=== PATIENT | male | born 1960 | race Caucasian/White ===

== ENCOUNTER → 2023-06-11 | Outpatient (CLI) | payer BC | END | disposition home or self-care (01) | LOC: LABWHC1 10:38 | PROVIDERS: ATTEND Orthopaedic Surgery Orthopaedic Surgery of the Spine | DX: Z01.812 Encounter for preprocedural laboratory examination (principal) | CPT/HCPCS: 86850; 86900; 86901 ==

== ENCOUNTER 2023-06-15 10:23 | Inpatient (IN) | payer BC ==
[~2023-06-15 10:23] MED LIST: HYDROmorphone 0.5 MG/0.5 ML SYRINGE IVP PRN
[2023-06-15] MEDS: LACTATED RINGERS 1,000 ML IV SCH (11:31)
[2023-06-15] MEDS: LIDOCAINE 1% (10MG/ML) FOR IV START INTRADERMA ONE (11:31)
[2023-06-15] MEDS: ONDANSETRON 4 MG/2 ML VIAL IVP ONE (11:33)
[2023-06-15] MEDS ORDERED: PROPOFOL 10 MG/ML 20 ML VIAL IV ONE (12:41)
[2023-06-15] MEDS ORDERED: HYDROmorphone (PF) 1 MG/ML ONE (12:41)
[2023-06-15] MEDS ORDERED: KETAMINE HCL IN 0.9 % NACL 50 MG/5 ML SYRINGE ONE (12:41)
[2023-06-15] MEDS ORDERED: GLYCOPYRROLATE 0.2 MG/ML 2 ML VIAL ONE (12:41)
[2023-06-15] MEDS ORDERED: ROCURONIUM 10 MG/ML (5 ML VIAL) IV ONE (12:41)
[2023-06-15] MEDS ORDERED: MIDAZOLAM 2 MG/2 ML VIAL ONE (12:41)
[2023-06-15] MEDS ORDERED: LIDOCAINE 1% INJ 10MG/ML (20 ML MDV) ONE (12:41)
[2023-06-15] MEDS ORDERED: PHENYLEPHRINE 10 MG/ML VIAL ONE (12:41)
[2023-06-15] MEDS ORDERED: SUCCINYLCHOLINE CHLORIDE 200 MG/10 ML VIAL IV ONE (12:41)
[2023-06-15] MEDS ORDERED: fentaNYL (PF) 50 MCG/ML 2 ML AMP ONE (12:41)
[2023-06-15] MEDS ORDERED: NEOSTIGMINE 1 MG/ML 10 ML VIAL ONE (12:41)
[2023-06-15] MEDS: LIDOCAINE 0.5%-EPI 1:200,000 50 ML VIAL SQ ONE (12:46)
[2023-06-15] MEDS: GELATIN SPONGE,ABSORB (LARGE) 1 EACH SPONGE TOPICAL ONE (12:46)
[2023-06-15] MEDS: THROMBIN (BOVINE) 5,000 UNIT VIAL TOPICAL ONE (12:46)
[2023-06-15] MEDS: ceFAZolin 1,000 MG in SODIUM CHLORIDE 0.9% IRRIGATIO 1,000 ML IRRIGATION PRN (13:32)
[2023-06-15] MEDS: LACTATED RINGERS 1,000 ML IV ONE (14:33)
[2023-06-15] MEDS ORDERED: HYDROmorphone 0.5 MG/0.5 ML SYRINGE IVP PRN (16:38)
[2023-06-15] MEDS ORDERED: BENZOCAINE/MENTHOL LOZENG 1 EACH LOZENGE MUCOUS MEM PRN (16:38)
[2023-06-15] MEDS ORDERED: SENNOSIDES-DOCUSATE SODIUM 1 EACH TAB PO PRN (16:39)
[2023-06-15] MEDS ORDERED: NON FORMULARY DRUG (Sildenafil Citrate [Sildenafil Citrate] 100 MG Tablet) PO PRN (16:41)
--- NOTE | 2023-06-15 16:51 | P.OP ---
Date of Procedure: 06/15/23 Preoperative Diagnosis: Severe spinal stenosis L3-4 L4-5, degenerative disc disease L3-4 L4-5, disc herniation L3-4 L4-5, neurogenic claudication, lower extremity radiculopathy, lower extremity weakness, facet arthrosis, degenerative scoliosis Postoperative Diagnosis: Same Anesthesia: GETA Pathology: none sent Condition: stable Disposition: PACU Description of Procedure: DESCRIPTION OF PROCEDURE(S): BRIEF OPERATIVE NOTE Preoperative Diagnosis: Severe spinal stenosis L3-4 L4-5, degenerative disc disease L3-4 L4-5, disc herniation L3-4 L4-5, neurogenic claudication, lower extremity radiculopathy, lower extremity weakness, facet arthrosis, degenerative scoliosis Postoperative Diagnosis: Same Procedure: Laminectomy and bilateral decompression L3-4 L4-[address] navigation aided Minimally invasive Posterior lateral decompression and facet fusion L3-4 L4-5 Minimally invasive Transforaminal lumbar interbody fusion for a 360 fusion L3-4 L4-5 Discectomy for decompression beyond the scope of preparation for fusion at L3-4 L4-5 Placement of interbody graft L3-4 L4-5 Use of computer navigation for fusion and pedicle screw fixation at L3- 4 and 5 bilaterally Local autogenous bone grafting Aspiration of bone marrow from the vertebral body pedicle L3 on the right Use of bone graft extenders Surgeon: Dr. Melendez Crepe Sole Scourer: Pedro FRANCOIS who is present throughout the entire the case persistence during positioning, dissection, exposure, visualization, and all crucial elements of the case as well as closure. Anesthesia: General anesthesia per Estimated blood loss: Approximately 250 mL Complications: None apparent Components implanted: K2M Ankit minimally invasive [place] pedicle screw system withscrews measuring 6.5 mm in diameter to rods to [place] interbody cage 1 at L3-4 and 1 at L4-5 with 10 mL of osteo amp bio4 bone graft substitute and 30 mL of the BX bone fibers to supplement the local autogenous bone graft and bone marrow aspirate Disposition: To recovery room in good stable condition. OPERATIVE INDICATIONS The patient has had severe issues at their lower extremity in her lower back over the past several years with significant worsening over the past several months. Over the past few months the patient had pain at their back and their lower extremities. The patient is having severe radicular symptoms at their lower extremity with weakness. He has been having significant neurogenic claudication and having worsening trouble getting around and with any activities. The patient is having significant pain in their back. They are unable to obtain any comfort. We did aggressive conservative treatment with medications therapy and interventional pain management however thery were not having any relief. The patient showed evidence of some degenerative scoliosis as well. The patient has been through conservative treatment. We discussed various treatment options including surgery, and the patient wishes to proceed with surgery We discussed the risk, patient's alternatives and benefits of surgery including but not limited to, risk of bleeding risk of infection, risk of need for further surgery, risk of decreased, loss of motion, muscle function, malunion nonunion, hardware failure, nerve damage, paralysis, heart attack, blindness and . They understood issues with the current pandemic and the possibility of exposure. OPERATIVE SUMMARY After discussing all the risks, patient alternatives and benefits at length, the patient elected to proceed with surgical intervention, signed informed consent, and presented for their procedure. The patient was seen and examined in the preoperative holding area and the surgical site was marked. The patient was given antibiotics and brought to the operating room. The patient was sedated and intubated by anesthesia in standard fashion. The patient was positioned on to the operating room table in a prone position on the appropriate frame which was well-padded and well molded. We were careful to pad any bony prominences and pressure points. We were careful to maintain the patient's cervical spine and good neutral alignment and position throughout. The patient was prepped and draped in a normal standard fashion. An appropriate timeout and keystone protocol performed. We were able to proceed with the surgery. The local wound area was infiltrated with local anesthetic. Over the right iliac crest I was able to make small stab incisions and establish a guidepin screw fixation to the iliac crest 2. I was able place the computer referencing device over the guidepins to establish an appropriate reference point for the Ziem CT navigation. We then were able to place patient in an appropriate drape and do a navigation spin for visualization and 3-D reconstruction of the lumbar spine. I was able utilize C-arm guidance and navigation to establish appropriate position over the pedicles bilaterally at the appropriate levels at L3-4 and 5. With the appropriate levels confirmed was able to make small incisions over the appropriate pedicle sites bilaterally. Utilizing the computer navigation device I was able to establish bony landmarks at the right iliac crest for a bony reference point for the navigation device. I was able to establish a Jamshidi needle over the lateral aspect of the pedicle and advanced the trocar into the pedicle being careful not to breech superiorly inferiorly medially or laterally using computer navigation device. Position was confirmed regularly with AP and lateral images on C-arm and with the computer navigation device at the appropriate levels bilaterally. I was able to establish the trocar into the pedicle appropriately into the posterior aspect of the vertebral body bilaterally at the appropriate levels. This was done at each of the pedicle positions and each of the vertebrae. At the superior vertebrae of L3 on the right I was able to take approximately 25 mL of bone aspiration for use later in the case to supplement the allograft and autograft bone. I was able place the guidewire into the trocar and into the vertebral body appropriately under C-arm guidance. Dissection was taken down over the wire to the appropriate starting position for the screw placed. The appropriate length screw was chosen, threaded over the guidewire and screwed appropriately into the pedicle and vertebral body under C-arm guidance in excellent alignment and position with good bony purchase. This is done at each of the screw sites at the appropriate levels.. With the screws intact I extended the incision to connect the screw hole sites on the most symptomatic side. I dissected down to establish access over the pars and lamina to the base of the spinous process. I was able to expose the facet joint. The capsule the facet was taken down and showed some facet arthrosis at the joint. I was able to use a combination of curettes and Kerrison rongeurs and a high-speed drill to take down the facet joint and do a facetectomy. I was able get excellent foraminal decompression and central decompression with undermining across midline to perform a laminectomy centrally and contralaterally. As able get good central decompression. I was able to get bilateral decompression at L3-4 and L4-5 beyond the scope of preparation for fusion. The ligamentum flavum was taken down to further decompress centrally and at bilateral neural foramen. I was able to expose the disc space and visualize the traversing nerve root. Note was made of some disc protrusion and disc herniation that was abutting the traversing nerve root at the level causing further compression of the nerve root. I was able to establish a annulotomy at the appropriate level protecting soft tissue and neural structures. Note was made of some disc desiccation at the disc. Discectomy for decompression was performed beyond scope of preparation for fusion. I performed a complete discectomy with accommodation of curettes and rasps and scrapers. I was able get good endplate preparation at the disc space. I sized for the appropriate size interbody spacer protecting the soft tissue and neural structures. The wound was copiously irrigated and suctioned dry. There is no evidence of any dural tear or leak. I was able to pack the disc space with local autogenous bone graft as well as a small amount of bone graft which was also placed into the interbody cage itself. Protecting the soft tissue structures and neural structures I was able place the interbody cage in good alignment and good position with good fit and fill at the interbody space. This was done first at L4-5 and then similarly at L3-4. position was confirmed with C-arm guidance. Good hemostasis maintained. There is no evidence of any dural tear or leak. The wound was irrigated and suctioned dry. With the hardware intact, intraoperative C-arm imaging was again taken which showed good alignment and position of the hardware at the appropriate levels at L3-4 and 5. We were then able to measure, contour and place the rods and appropriate hardware bilaterally. I was able to place capcrews, tighten them down, and torque them with the torque screwdriver appropriately. With this intact I was able to place the local autogenous bone graft with additional bone graft enhancer as necessary into the posterior lateral gutters over the decorticated transverse processes and facet joints on the contralateral side. The remainder of the bone graft was placed over the facet joint on the contralateral side after taking down the facet joint capsule. With the bone graft intact, a stable construct, and good decompression at the appropriate levels, we were able to proceed with closure. Good hemostasis was maintained. There is no evidence of dural tear or leak. The fascia was closed for a watertight closure. he subcuticular tissue was closed with absorbable suture. The wound was cleaned and dried and dressed with the appropriate dressing. The drapes were broken down. The patient was gently rolled back onto their hospital bed being careful to maintain their cervical spine and good neutral alignment and position. They were woken up by anesthesia, extubated, and brought to the recovery room in good stable condition. The patient will be admitted to the hospital for appropriate postoperative care, medical management and monitoring. We will continue to follow them closely about the postoperative course.
[2023-06-15] MEDS: HYDROmorphone 0.5 MG/0.5 ML SYRINGE IVP ONE (17:13)
--- NOTE | 2023-06-15 17:15 | FL ---
EXAMINATION TYPE: FL guidance operating room Intraoperative/procedural fluoroscopic services were pro vided. Total fluoroscopy time is 29 seconds with a total of 5 submitted images to PACS. Please see th e operative/procedural note for further details. DAP: 4459.26 cGycm2
[2023-06-15] MEDS: HYDROcodone/APAP 5-325MG 1 EACH TAB PO PRN (18:32)
[2023-06-15] MEDS: CYCLOBENZAPRINE 10 MG TAB PO PRN (18:32)
[2023-06-15] MEDS: DEXAMETHASONE SOD PHOSPHATE 4 MG/ML 1 ML VIAL IV ONE (18:49)
[2023-06-15] MEDS: HYDROmorphone 1 MG/ML 1 ML SYRINGE IVP PRN (20:19)
[2023-06-15] MEDS: ATORVASTATIN 80 MG TAB PO SCH (20:20)
[2023-06-15] MEDS: lisinopriL 20 MG TAB PO SCH (20:21)
[2023-06-16] MEDS: SODIUM CHLORIDE 0.9% 1,000 ML IV SCH (03:14)
[2023-06-16] MEDS: PANTOPRAZOLE 40 MG TABLET PO SCH (06:48)
[2023-06-16] MEDS: FENOFIBRATE 160 MG TAB PO SCH (08:52)
[2023-06-16] MEDS: ASPIRIN 81 MG PO SCH (08:52)
[2023-06-16] MEDS: MULTIVITAMINS, THERA 1 EACH TAB PO SCH (08:53)
[2023-06-16] MEDS: amLODIPine 10 MG TAB PO SCH (08:53)
[2023-06-16] MEDS: FLUTICASONE 50MCG/SPRAY NASAL 16GM EA NOSTRIL SCH (08:54)
[2023-06-16] MEDS ORDERED: NON FORMULARY DRUG (Calcium Phos/D3/Magnesium/Zinc [Calcium-Mag-Zinc-Vitamin D3] 1 EACH Ta PO SCH (09:00)
--- NOTE | 2023-06-16 10:10 | P.PN ---
Progress Note - Text Progress Note Date: 06/16/23 Postoperative day #1 Patient is seen and examined today at bedside. The patient has some pain around the surgical site as expected. Pain is being controlled with medication. He still has his Silva catheter intact. He has not yet been up with physical therapy Physical Exam Afebrile with stable vital signs Abdomen is soft nontender. Chest has good excursion deep and space expiration The incision site is clean dry and intact. No erythema there is no purulence. Extremities have not had neurologic change from prior to surgery. His legs are moving well without any deficits Calves and thighs were soft nontender without evidence of DVT. Assessment/Plan Postoperative day #1 status post minimally invasive decompression and fusion L3- 4 L4-5 for his severe spinal stenosis with disc herniation and lower extremity radiculopathy and weakness Patient is progressing as expected from the surgery. He is having pain in his lower back but is being controlled with medication. We need to increase his mobility and his transfers We will continue to increase the patient's mobilization with therapy. We will get his Silva catheter out today We will continue pain control with oral or IV medications. We'll continue to follow patient closely.
[2023-06-16 10:48] LABS: HCT 38.8 % (39.6-50.0); HGB 12.5 g/dL (13.0-17.0); MCH 28.2 pg (27.0-32.0); MCHC 32.2 g/dL (32.0-37.0); MCV 87.4 FL (80.0-97.0); Mean Platelet Volume 9.9 FL (9.5-12.2); NRBC Per 100 WBC 0 X 10*3/uL (0.00-0.01); Platelet Count 207 X 10*3/uL (140-440); RBC 4.44 X 10*6/uL (4.40-5.60); RDW 13.1 % (11.5-14.5); WBC 14.21 X 10*3/uL (4.50-10.00)
[2023-06-16 11:20] LABS: BUN/Creat Ratio 15.67 Ratio (12.00-20.00); Blood Urea Nitrogen 14.1 mg/dL (9.0-27.0); Calcium 8.7 mg/dL (8.7-10.3); Carbon Dioxide 24.8 mmol/L (21.6-31.8); Chloride 103 mmol/L (96-109); Glucose 165 mg/dL (70-110); Potassium 3.8 mmol/L (3.5-5.5); Sodium 139 mmol/L (135-145)
[2023-06-16 11:22] LABS: Basophils # (M) 0.14 X 10*3/uL (0.00-0.10); Eosinophils # (M) 0 X 10*3/uL (0.04-0.35); Lymphocytes # (M) 2.13 X 10*3/uL (0.90-5.00); Monocytes # (M) 0.99 X 10*3/uL (0.20-1.00); Neutrophils # (M) 10.94 X 10*3/uL (1.80-7.70); Neutrophils % (M) 77 %
--- NOTE | 2023-06-16 16:12 | P.CONS ---
History of Present Illness - Reason for Consult Consult date: 06/16/23 Medical management Requesting physician: Paola Melendez - Chief Complaint Lumbar surgery - History of Present Illness This is a pleasant 62-year-old patient who follows with Dr. Tessa Lentz. Chronic stable medical conditions include GERD, hypertension, hyperlipidemia, obstructive sleep apnea pending CPAP, and a prior history of DVT with COVID. Patient had chronic low back pain with radiation down both legs. Symptoms had not been controlled conservatively. Patient has severe spinal stenosis with radiculopathy and disc herniation. Patient with surgical intervention yesterday by Dr. Melendez. Today sitting up in a chair. Did take a few steps in the room. Pain is present. No nausea vomiting. Some lightheaded. Ate some breakfast this morning. He did use a walker today. No bowel movement. 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 Smokes marijuana rarely. Non-smoker. Alcohol occasionally. Physical examination: VITAL SIGNS: 98.5, 106, 18, 156/78, 92% on 2 L GENERAL: BMI 33.9, sitting up in chair awake. EYES: Pupils equal. Conjunctiva caroline l. HEENT: External appearance of nose and ears normal, oral cavity grossly normal. NECK: JVD not raised; masses not palpable. HEART: First and second heart sounds are normal; no edema. LUNGS: Respiratory rate normal; clear to auscultation. ABDOMEN: Soft, nontender, liver spleen not palpable, no masses palpable. PSYCH: Alert and oriented x3; mood and affect caroline l. MUSCULOSKELETAL:No Clubbing/cyanosis;muscles-grossly intact. Able to lift his legs. NEUROLOGICAL: Cranial nerves grossly intact; no facial asymmetry, power and sensation grossly intact. LYMPHATICS: No lymph nodes palpable in the axilla and neck INVESTIGATIONS, reviewed in the clinical context: June 16, 2023: White count 14.2 hemoglobin 12.5 platelets 227 potassium 3.8 creatinine 0.9 Assessment plan: -Severe spinal stenosis L3-4 L4-5, degenerative disc disease L3-4 L4-5, disc herniation L3-4 L4-5, neurogenic claudication, lower extremity radiculopathy, lower extremity weakness, facet arthrosis, degenerative scoliosis Laminectomy bilateral decompression discectomy etc. with Dr. Melendez on June 15 Pain control. Activity as tolerated. -Leukocytosis, reactive. Currently no obvious evidence of infection -Essential hypertension Amlodipine 10 mg a day. Toprol XL 100 mg a day. Vasotec 20 mg twice daily -Muscle spasms -Hyperlipidemia Crestor 40 mg nightly -GERD PPI -Obstructive sleep apnea Pending CPAP -Obesity BMI 33.9 Weight loss measures Care was discussed with the patient. Questions answered. Thank you Dr. Melendez - Past Medical History Past Medical History: Deep Vein Thrombosis (DVT), GERD/Reflux, Hyperlipidemia, Hypertension, Sleep Apnea/CPAP/BIPAP Additional Past Medical History / Comment(s): DVT in lungs when he had COVID, "I've been told I snore a lot." "I'm going to have testing for it after my back surgery.", numbness to bi lat legs and feet. History of Any Multi-Drug Resistant Organisms: None Reported Past Surgical History: Hernia Repair, Orthopedic Surgery, Tonsillectomy Additional Past Surgical History / Comment(s): Umbilical hernia repair, Rt meniscus surgery, colonoscopy. Past Anesthesia/Blood Transfusion Reactions: Previous Problems w/ Anesthesia Additional Past Anesthesia/Blood Transfusion Reaction / Comm: "I was slow to wake up." Past Psychological History: No Psychological Hx Reported Smoking Status: Never smoker Past Alcohol Use History: Occasional Past Drug Use History: Marijuana Additional Drug Use History / Comment(s): "I smoke Marijuana 2-3 times a year." Pt instructed to not use Marijuana 24 hours prior to surgery. - Past Family History Father Family Medical History: Cancer Additional Family Medical History / Comment(s): Esophageal and pancreas Medications and Allergies Home Medications Medication Instructions Recorded Confirmed Type Aspirin 81 mg PO DAILY 06/09/23 06/15/23 History Calcium Phos/D3/Magnesium/Zinc 1 each PO DAILY 06/09/23 06/15/23 History [Ozikgsp-Pgn-Twan-Vitamin D3] Enalapril Maleate [Vasotec] 20 mg PO BID 06/09/23 06/15/23 History Fenofibrate 160 mg PO DAILY 06/09/23 06/15/23 History Fluticasone Nasal Anton [Flonase 2 spray EA NOSTRIL DAILY 06/09/23 06/15/23 History Nasal Anton] Ibuprofen [Motrin] 800 mg PO Q6H PRN 06/09/23 06/15/23 History Metoprolol Succinate (ER) [Toprol 100 mg PO DAILY 06/09/23 06/15/23 History Xl] Multivitamins, Thera [Multivitamin 1 tab PO DAILY 06/09/23 06/15/23 History (formulary)] Omeprazole [PriLOSEC] 20 mg PO AC-BRKFST 06/09/23 06/15/23 History Rosuvastatin Calcium [Crestor] 40 mg PO HS 06/09/23 06/15/23 History Sildenafil Citrate 100 mg PO DIRECTED PRN 06/09/23 06/15/23 History amLODIPine [Norvasc] 10 mg PO DAILY 06/09/23 06/15/23 History Cyclobenzaprine [Flexeril] 10 mg PO TID PRN #60 tab 06/16/23 Rx HYDROcodone/APAP 5-325MG [Estelline 1 tab PO Q4HR PRN 7 Days #42 tab 06/16/23 Rx 5-325] Allergies Allergy/AdvReac Type Severity Reaction Status Date / Time acetaminophen Allergy Nausea Verified 06/15/23 11:11 [From Darvocet-N] propoxyphene Allergy Nausea Verified 06/15/23 11:11 [From Darvocet-N] Physical Exam Vitals: Vital Signs Temp Pulse Resp BP Pulse Ox 06/16/23 08:00 98.5 F 106 H 18 156/78 92 L 06/16/23 07:35 106 H 18 06/16/23 00:59 98.5 F 110 H 16 142/68 94 L 06/15/23 19:46 97.1 F L 98 16 142/79 90 L 06/15/23 19:31 94 141/79 98 06/15/23 19:16 92 139/81 92 L 06/15/23 19:01 84 146/80 98 06/15/23 18:46 91 154/73 92 L 06/15/23 18:31 87 146/80 92 L 06/15/23 18:16 99 148/79 95 06/15/23 17:59 90 20 146/72 96 06/15/23 17:29 90 20 146/70 95 06/15/23 17:14 87 20 151/71 97 06/15/23 16:59 91 20 131/60 99 06/15/23 16:44 97.4 F L 93 16 163/85 100 06/15/23 11:07 97.3 F L 99 16 152/78 97 Intake and Output 06/15/23 06/16/23 06/16/23 22:59 06:59 14:59 Intake Total 0 Output Total 575 1100 Balance -575 -1100 Intake: IV 0 Output: Urine 300 1100 Estimated Blood Loss 275 Other: Voiding Method Indwelling Catheter Indwelling Catheter Weight 101.1 kg Results CBC & Chem 7: 06/16/23 07:18 06/16/23 07:18
[2023-06-16] MEDS: METOPROLOL SUCCINATE (ER) 100 MG TAB.ER.24H PO SCH (17:37)
--- NOTE | 2023-06-17 08:52 | P.PN ---
Progress Note - Text Progress Note Date: 06/17/23 Orthopedic Spine History of present illness: Patient is a pleasant 62-year-old male who is seen and examined at the bedside following posterior lateral decompression and fusion performed today. Patient states they are doing ok post operatively. He does continue to have significant pain and difficulty with mobilization in regards to his lumbar spine. His pain is better controlled while at rest. He is not currently complain of any signif icant lower extremity radiculopathy or weakness. His Silva catheter was just discontinued this morning. He has not voided independently yet. He was able to eat breakfast without any significant difficulty. He has not experienced any abdominal pain. He is requiring assistance with a walker to aid in ambulation. His ambulation is slow. He is working with physical therapy. He does have a walker for home use. 6 Currently does not complain of nausea, vomiting, fever, or chills. Patient is being seen and examined by medicine for his multiple other medical diagnoses. Physical Exam Lumbar Fusion: Status post surgical day number 2 Patient is awake, alert, and oriented 3 Vital signs stable Good chest excursion with deep inspiration and expiration Abdomen soft nontender Dorsiflexion, plantarflexion, and extensor hallucis longus positive sustained bilaterally No signs or symptoms of DVT; no calf pain; pneumatic cuffs intact bilateral lower extremities Optifoam dressings are dry and intact over the lumbar spine and right iliac crest; no erythema, purulence, or signs of infection 2 areas of dried blood at the surgical dressing over the left lumbar paraspinal incision site Neurovascularly intact bilaterally lower extremities Patient does have difficulty rolling over in bed independently Assessment: Status post L3-4 and L4-5 minimally invasive posterior lateral decompression and fusion with transforaminal lumbar interbody fusion Low back pain L3-4 and L4-5 severe spinal stenosis L3-4 and L4-5 degenerative disc disease Neurogenic claudication Lower extremity radiculopathy Lumbar facet arthrosis Degenerative scoliosis L3-4 and L4-5 herniated nucleus pulposus Lower extremity radiculopathy Lumbar muscle spasm Hyperlipidemia Essential hypertension Obstructive sleep apnea Obesity Plan: We will continue to follow the patient closely; patient continues to have difficulty with mobilization and ambulation postoperatively. He has been working with physical therapy and is progressing slowly. Hhe has been utilizing a walker. He continues to require IV and oral medications for pain control. I do not feel the patient is ready for discharge home. Patient will continue to remain in the hospital until his symptoms improve and his pain is better controlled. We will plan to have the patient be admitted to in patient status during his admission. Depending on his progress we patient may plan to be discharged home tomorrow, 06/18/2023, or 06/19/2023. 1. Ambulate as tolerated; work with Physical Therapy to increase mobilization 2. Continue pain control with IV and oral medications; will plan to begin weaning the patient off of IV narcotic medication in anticipation for discharge home in the next 1-2 days [facility] has been previously reviewed. An "Opiod Start Talking" Form has been signed and placed in the patient's chart. A prescription has been written for hydrocodone 5 mg / 325 mg, 1 tab, every 4 hours, as needed for acute pain, dispense #42. Prescriptions are sent to [facility] located within [facility]. Patient is also sent prescriptions for cyclobenzaprine 10 mg, 1 tab, 3 times daily, as needed for muscle spasm, dispense #60 and Senokot-S, 1 tab, twice daily, as needed for constipation, dispense #60. 3. Dressings to remain intact with Optifoam; patient may shower with dressings intact 4. Medical management can continue to manage patient for patient's other medical diagnoses 5. We will continue to follow the patient closely; depending on the patient's progress, we may plan for discharge home as early as tomorrow, 06/18/2023, or 06/19/2023. 6. Patient can follow-up with Pedro Dia PA-C or Dr. Ben Melendez at [facility] in 2-3 weeks following discharge
--- NOTE | 2023-06-17 16:16 | P.PN ---
Progress Note - Text Progress Note Date: 06/17/23 - Chief Complaint Lumbar surgery - History of Present Illness This is a pleasant 62-year-old patient who follows with Dr. Tessa Lentz. Chronic stable medical conditions include GERD, hypertension, hyperlipidemia, obstructive sleep apnea pending CPAP, and a prior history of DVT with COVID. Patient had chronic low back pain with radiation down both legs. Symptoms had not been controlled conservatively. Patient has severe spinal stenosis with radiculopathy and disc herniation. Patient with surgical intervention yesterday by Dr. Melendez. Today sitting up in a chair. Did take a few steps in the room. Pain is present. No nausea vomiting. Some lightheaded. Ate some breakfast this morning. He did use a walker today. No bowel movement. Silva catheter June 17: Patient did walk with a walker today. Pain present. Silva catheter was removed. No bowel movement. Did tolerate diet. Active Medications Hydrocodone Bitart/Acetaminophen (Hydrocodone/Apap 5-325mg 1 Each Tab) 1 each PO Q4HR PRN PRN Reason: Pain Stop: 07/15/23 16:39 Last Admin: 06/17/23 14:56 Dose: 1 each Amlodipine Besylate (Amlodipine 10 Mg Tab) 10 mg PO DAILY [facility] Stop: 07/16/23 09:01 Last Admin: 06/17/23 09:06 Dose: 10 mg Aspirin (Aspirin 81 Mg) 81 mg PO DAILY [facility] Stop: 07/16/23 09:01 Last Admin: 06/17/23 09:06 Dose: 81 mg Atorvastatin Calcium (Atorvastatin 80 Mg Tab) 80 mg PO HS [facility] Stop: 07/15/23 21:01 Last Admin: 06/16/23 19:59 Dose: 80 mg Benzocaine/Menthol (Benzocaine/Menthol Lozeng 1 Each Lozenge) 1 each MUCOUS MEM Q4HR PRN PRN Reason: Sore Throat Stop: 07/15/23 16:39 Cyclobenzaprine HCl (Cyclobenzaprine 10 Mg Tab) 10 mg PO TID PRN PRN Reason: Muscle Spasm Stop: 07/15/23 16:40 Last Admin: 06/17/23 06:05 Dose: 10 mg Fenofibrate (Fenofibrate 160 Mg Tab) 160 mg PO DAILY [facility] Stop: 07/16/23 09:01 Last Admin: 06/17/23 09:06 Dose: 160 mg Fluticasone Propionate (Fluticasone 50mcg/[place] Nasal 16gm) 2 spray EA NOSTRIL DAILY [facility] Stop: 07/16/23 09:01 Last Admin: 06/17/23 09:06 Dose: 2 spray Hydromorphone HCl (Hydromorphone 0.5 Mg/0.5 Ml Syringe) 0.5 mg IVP Q4HR PRN PRN Reason: Pain Stop: 07/15/23 16:39 Hydromorphone HCl (Hydromorphone 1 Mg/Ml 1 Ml Syringe) 1 mg IVP Q4HR PRN PRN Reason: Pain Stop: 07/15/23 16:39 Last Admin: 06/17/23 15:13 Dose: 1 mg Lactated Ringer's (Lactated Ringers) 1,000 mls @ 20 mls/hr IV .Q24H [facility] Stop: 07/15/23 08:23 Last Admin: 06/17/23 09:03 Dose: Not Given Sodium Chloride (Saline 0.9%) 1,000 mls @ 75 mls/hr IV .[id number] [facility] Stop: 07/15/23 16:46 Last Admin: 06/17/23 09:04 Dose: Not Given Lisinopril (Lisinopril 20 Mg Tab) 40 mg PO BID [facility] Stop: 07/15/23 21:01 Last Admin: 06/17/23 09:06 Dose: 40 mg Magnesium Hydroxide (Magnesium Hydroxide 2,400 Mg/30 Ml Cup) 2,400 mg PO DAILY PRN PRN Reason: Constipation Stop: 07/15/23 16:40 Metoprolol Succinate (Metoprolol Succinate (Er) 100 Mg Tab.Er.24h) 100 mg PO DAILY [facility] Stop: 07/16/23 09:01 Last Admin: 06/17/23 09:06 Dose: 100 mg Multivitamins (Multivitamins, Thera 1 Each Tab) 1 each PO DAILY [facility] Stop: 07/16/23 09:01 Last Admin: 06/17/23 09:06 Dose: 1 each Ondansetron HCl (Ondansetron 4 Mg/2 Ml Vial) 4 mg IVP Q8HR PRN PRN Reason: Nausea And Vomiting Stop: 07/15/23 16:40 Pantoprazole Sodium (Pantoprazole 40 Mg Tablet) 40 mg PO AC-BRKFST [facility] Stop: 07/16/23 07:31 Last Admin: 06/17/23 06:05 Dose: 40 mg Senna/Docusate Sodium (Sennosides-Docusate Sodium 1 Each Tab) 2 each PO [facility] 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 Non-smoker. Alcohol occasionally. Physical examination: VITAL SIGNS: 98.2, 104, 20, 166 Paes 83, 94% room air GENERAL: Sitting up in the chair EYES: Pupils equal. Conjunctiva caroline l. HEENT: External appearance of nose and ears normal, oral cavity grossly normal. NECK: JVD not raised; masses not palpable. HEART: First and second heart sounds are normal; no edema. LUNGS: Respiratory rate normal; clear to auscultation. ABDOMEN: Soft, nontender, liver spleen not palpable, no masses palpable. PSYCH: Alert and oriented x3; mood and affect caroline l. MUSCULOSKELETAL:No Clubbing/cyanosis;muscles-grossly intact. Dressing over the incision site INVESTIGATIONS, reviewed in the clinical context: June 16, 2023: White count 14.2 hemoglobin 12.5 platelets 227 potassium 3.8 creatinine 0.9 Assessment plan: -Severe spinal stenosis L3-4 L4-5, degenerative disc disease L3-4 L4-5, disc herniation L3-4 L4-5, neurogenic claudication, lower extremity radiculopathy, lower extremity weakness, facet arthrosis, degenerative scoliosis Laminectomy bilateral decompression discectomy etc. with Dr. Melendez on June 15 Pain control. Activity as tolerated. -Leukocytosis, reactive. Currently no obvious evidence of infection -Essential hypertension Amlodipine 10 mg a day. Toprol XL 100 mg a day. Vasotec 20 mg twice daily -Muscle spasms -Hyperlipidemia Crestor 40 mg nightly -GERD PPI -Obstructive sleep apnea Pending CPAP -Obesity BMI 33.9 Weight loss measures Activity as tolerated. Thank you Dr. Melendez - Past Medical History Past Medical History: Deep Vein Thrombosis (DVT), GERD/Reflux, Hyperlipidemia, Hypertension, Sleep Apnea/CPAP/BIPAP Additional Past Medical History / Comment(s): DVT in lungs when he had COVID, "I've been told I snore a lot." "I'm going to have testing for it after my back surgery.", numbness to bi lat legs and feet. History of Any Multi-Drug Resistant Organisms: None Reported Past Surgical History: Hernia Repair, Orthopedic Surgery, Tonsillectomy Additional Past Surgical History / Comment(s): Umbilical hernia repair, Rt meniscus surgery, colonoscopy. Past Anesthesia/Blood Transfusion Reactions: Previous Problems w/ Anesthesia Additional Past Anesthesia/Blood Transfusion Reaction / Comm: "I was slow to wake up." Past Psychological History: No Psychological Hx Reported Smoking Status: Never smoker Past Alcohol Use History: Occasional Past Drug Use History: Marijuana Additional Drug Use History / Comment(s): "I smoke Marijuana 2-3 times a year." Pt instructed to not use Marijuana 24 hours prior to surgery.
[2023-06-17] MEDS: SENNOSIDES-DOCUSATE SODIUM 1 EACH TAB PO SCH (20:34)
--- NOTE | 2023-06-18 09:26 | P.PN ---
Subjective Progress Note Date: 06/18/23 Principal diagnosis: Status post L3-4 and L4-5 minimally invasive posterior lateral decompression and fusion Tim is a pleasant 62-year-old male status post posterior lumbar lateral decompression and fusion. He is at post op day #3. Patient states they are doing ok post operatively. He does continue to have significant pain and difficulty with mobilization in regards to his lumbar spine but it is improving according to the patient. His pain is better controlled while at rest. He is complaining of increased pain down the back of the right leg today. He is working with [employer]. Objective - Vital Signs Vital signs: Vital Signs Temp 97.6 F 06/18/23 07:14 Pulse 89 06/18/23 07:14 Resp 17 06/18/23 07:14 BP 159/78 06/18/23 07:14 Pulse Ox 95 06/18/23 08:23 FiO2 Intake & Output 06/17/23 06/18/23 06/18/23 18:59 06:59 18:59 Intake Total 480 Output Total 1100 750 Balance -1100 -270 Intake: Oral 480 Output: Urine 1100 600 Uretheral (Silva) 1100 Post Void Residual 150 Other: Voiding Method Urinal # Voids 2 - Exam Patient is awake, alert, and oriented 3. Dressings are intact, there is a small amount of drainage on the left dressing. His abdomen is soft and nontender. Dorsiflexion, plantarflexion, extensor hallucis longus positive sustaining bilaterally. Calves are soft and nontender. The patient has full foot and ankle motion without difficulty. Patient's bilateral lower extremities are neurovascular intact. - Labs CBC & Chem 7: 06/16/23 07:18 06/16/23 07:18 Assessment and Plan (1) Lumbar spinal stenosis Current Visit: Yes Status: Acute Code(s): M48.061 - SPINAL STENOSIS, LUMBAR REGION WITHOUT NEUROGENIC MEGHA SNOMED Code(s): 89791814 (2) Lumbar disc disease with radiculopathy Current Visit: Yes Status: Acute Code(s): M51.16 - INTERVERTEBRAL DISC DISORDERS W RADICULOPATHY, LUMBAR REGION SNOMED Code(s): 472764464 (3) Status post lumbar spinal fusion Current Visit: Yes Status: Acute Code(s): Z98.1 - ARTHRODESIS STATUS SNOME D Code(s): 23419359171012 Plan: The clinical findings were discussed with the patient. He might want to go home today depending on how he feels later. He was encouraged to keep ambulating with the walker and staying on a schedule with pain medication. We will see how the day goes today with his pain and ambuation. He may discharge later today or tomorrow.
[2023-06-18] MEDS: TAMSULOSIN 0.4 MG CAP.ER.24H PO SCH (12:13)
--- NOTE | 2023-06-18 16:00 | P.PN ---
Progress Note - Text Progress Note Date: 06/18/23 - Chief Complaint Lumbar surgery - History of Present Illness This is a pleasant 62-year-old patient who follows with Dr. Tessa Lentz. Chronic stable medical conditions include GERD, hypertension, hyperlipidemia, obstructive sleep apnea pending CPAP, and a prior history of DVT with COVID. Patient had chronic low back pain with radiation down both legs. Symptoms had not been controlled conservatively. Patient has severe spinal stenosis with radiculopathy and disc herniation. Patient with surgical intervention yesterday by Dr. Melendez. Today sitting up in a chair. Did take a few steps in the room. Pain is present. No nausea vomiting. Some lightheaded. Ate some breakfast this morning. He did use a walker today. No bowel movement. Silva catheter June 17: Patient did walk with a walker today. Pain present. Silva catheter was removed. No bowel movement. Did tolerate diet. June 18: Patient is having some trouble with making urine. Had to be straight catheterized x 2. No prior problem. Given patient's age likely BPH. Flomax been added. No bowel movement. Pain is better. Did walk a bit in the hallway. present. Active Medications Hydrocodone Bitart/Acetaminophen (Hydrocodone/Apap 5-325mg 1 Each Tab) 1 each PO Q4HR PRN PRN Reason: Pain Stop: 07/15/23 16:39 Last Admin: 06/18/23 13:24 Dose: 1 each Amlodipine Besylate (Amlodipine 10 Mg Tab) 10 mg PO DAILY [facility] Stop: 07/16/23 09:01 Last Admin: 06/18/23 08:32 Dose: 10 mg Aspirin (Aspirin 81 Mg) 81 mg PO DAILY [facility] Stop: 07/16/23 09:01 Last Admin: 06/18/23 08:32 Dose: 81 mg Atorvastatin Calcium (Atorvastatin 80 Mg Tab) 80 mg PO HS [facility] Stop: 07/15/23 21:01 Last Admin: 06/17/23 20:33 Dose: 80 mg Benzocaine/Menthol (Benzocaine/Menthol Lozeng 1 Each Lozenge) 1 each MUCOUS MEM Q4HR PRN PRN Reason: Sore Throat Stop: 07/15/23 16:39 Cyclobenzaprine HCl (Cyclobenzaprine 10 Mg Tab) 10 mg PO TID PRN PRN Reason: Muscle Spasm Stop: 07/15/23 16:40 Last Admin: 06/17/23 20:34 Dose: 10 mg Fenofibrate (Fenofibrate 160 Mg Tab) 160 mg PO DAILY [facility] Stop: 07/16/23 09:01 Last Admin: 06/18/23 08:32 Dose: 160 mg Fluticasone Propionate (Fluticasone 50mcg/[place] Nasal 16gm) 2 spray EA NOSTRIL DAILY [facility] Stop: 07/16/23 09:01 Last Admin: 06/18/23 08:33 Dose: 2 spray Hydromorphone HCl (Hydromorphone 0.5 Mg/0.5 Ml Syringe) 0.5 mg IVP Q4HR PRN PRN Reason: Pain Stop: 07/15/23 16:39 Hydromorphone HCl (Hydromorphone 1 Mg/Ml 1 Ml Syringe) 1 mg IVP Q4HR PRN PRN Reason: Pain Stop: 07/15/23 16:39 Last Admin: 06/17/23 15:13 Dose: 1 mg Lactated Ringer's (Lactated Ringers) 1,000 mls @ 20 mls/hr IV .Q24H [facility] Stop: 07/15/23 08:23 Last Admin: 06/17/23 09:03 Dose: Not Given Sodium Chloride (Saline 0.9%) 1,000 mls @ 75 mls/hr IV .[id number] [facility] Stop: 07/15/23 16:46 Last Admin: 06/17/23 21:55 Dose: Not Given Lisinopril (Lisinopril 20 Mg Tab) 40 mg PO BID [facility] Stop: 07/15/23 21:01 Last Admin: 06/18/23 08:32 Dose: 40 mg Magnesium Hydroxide (Magnesium Hydroxide 2,400 Mg/30 Ml Cup) 2,400 mg PO DAILY PRN PRN Reason: Constipation Stop: 07/15/23 16:40 Metoprolol Succinate (Metoprolol Succinate (Er) 100 Mg Tab.Er.24h) 100 mg PO DAILY [facility] Stop: 07/16/23 09:01 Last Admin: 06/18/23 08:32 Dose: 100 mg Multivitamins (Multivitamins, Thera 1 Each Tab) 1 each PO DAILY [facility] Stop: 07/16/23 09:01 Last Admin: 06/18/23 08:32 Dose: 1 each Ondansetron HCl (Ondansetron 4 Mg/2 Ml Vial) 4 mg IVP Q8HR PRN PRN Reason: Nausea And Vomiting Stop: 07/15/23 16:40 Pantoprazole Sodium (Pantoprazole 40 Mg Tablet) 40 mg PO AC-BRKFST [facility] Stop: 07/16/23 07:31 Last Admin: 06/18/23 06:26 Dose: 40 mg Senna/Docusate Sodium (Sennosides-Docusate Sodium 1 Each Tab) 2 each PO HS [facility] Last Admin: 06/17/23 20:34 Dose: 2 each Tamsulosin HCl (Tamsulosin 0.4 Mg Cap.Er.24h) 0.4 mg PO -BRKFST [facility] Last Admin: 06/18/23 12:13 Dose: 0.4 mg 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 Non-smoker. Alcohol occasionally. Physical examination: VITAL SIGNS: 98.4, 86, 18, 156/81, 93% room air GENERAL: Sitting up in the chair EYES: Pupils equal. Conjunctiva caroline l. HEENT: External appearance of nose and ears normal, oral cavity grossly normal. NECK: JVD not raised; masses not palpable. HEART: First and second heart sounds are normal; no edema. LUNGS: Respiratory rate normal; clear to auscultation. ABDOMEN: Soft, nontender, liver spleen not palpable, no masses palpable. PSYCH: Alert and oriented x3; mood and affect caroline l. MUSCULOSKELETAL:No Clubbing/cyanosis;muscles-grossly intact. Dressing over the incision site INVESTIGATIONS, reviewed in the clinical context: June 16, 2023: White count 14.2 hemoglobin 12.5 platelets 227 potassium 3.8 creatinine 0.9 Assessment plan: -Severe spinal stenosis L3-4 L4-5, degenerative disc disease L3-4 L4-5, disc herniation L3-4 L4-5, neurogenic claudication, lower extremity radiculopathy, lower extremity weakness, facet arthrosis, degenerative scoliosis Laminectomy bilateral decompression discectomy etc. with Dr. Melendez on June 15 Pain control. Activity as tolerated. -Leukocytosis, reactive. Currently no obvious evidence of infection -Essential hypertension Amlodipine 10 mg a day. Toprol XL 100 mg a day. Vasotec 20 mg twice daily -Muscle spasms -Hyperlipidemia Crestor 40 mg nightly -Bladder outflow obstruction with intermittent decreased urine output. Patient had to have straight catheterization x 2. Likely BPH. Flomax 0.4 mg started today. Discussed with patient and . -GERD PPI -Obstructive sleep apnea Pending CPAP -Obesity BMI 33.9 Weight loss measures Add Flomax. Thank you Dr. Melendez - Past Medical History Past Medical History: Deep Vein Thrombosis (DVT), GERD/Reflux, Hyperlipidemia, Hypertension, Sleep Apnea/CPAP/BIPAP Additional Past Medical History / Comment(s): DVT in lungs when he had COVID, "I've been told I snore a lot." "I'm going to have testing for it after my back surgery.", numbness to bi lat legs and feet. History of Any Multi-Drug Resistant Organisms: None Reported Past Surgical History: Hernia Repair, Orthopedic Surgery, Tonsillectomy Additional Past Surgical History / Comment(s): Umbilical hernia repair, Rt meniscus surgery, colonoscopy. Past Anesthesia/Blood Transfusion Reactions: Previous Problems w/ Anesthesia Additional Past Anesthesia/Blood Transfusion Reaction / Comm: "I was slow to wake up." Past Psychological History: No Psychological Hx Reported Smoking Status: Never smoker Past Alcohol Use History: Occasional Past Drug Use History: Marijuana Additional Drug Use History / Comment(s): "I smoke Marijuana 2-3 times a year." Pt instructed to not use Marijuana 24 hours prior to surgery.
[2023-06-19] MEDS: MAGNESIUM HYDROXIDE 2,400 MG/30 ML CUP PO PRN (06:37)
[2023-06-19] MEDS: bisacodyL 10 MG SUPP RECTAL STA (08:55)
--- NOTE | 2023-06-19 09:39 | P.PN ---
Subjective Progress Note Date: 06/19/23 Principal diagnosis: Status post L3-4 and L4-5 minimally invasive posterior lateral decompression and fusion Tim is a pleasant 62-year-old male status post posterior lumbar lateral decompression and fusion. He is post op day #4. Patient states they are doing ok post operatively. He does continue to have significant pain and difficulty with mobilization in regards to his lumbar spine but it is improving according to the patient. His pain is better controlled while at rest. He is complaining of increased pain down the back of the right leg still today. He had a Dulcolax suppository this morning and milk of magnesia for constipation. The patient is passing very little gas. He also had urinary retention yesterday and a Silva catheter was placed. He is working with physical therapy. Objective - Vital Signs Vital signs: Vital Signs Temp 97.8 F 06/19/23 07:30 Pulse 99 06/19/23 07:30 Resp 18 06/19/23 07:30 BP 150/73 06/19/23 07:30 Pulse Ox 94 L 06/19/23 07:30 FiO2 Intake & Output 06/18/23 06/19/23 06/19/23 18:59 06:59 18:59 Intake Total 900 Output Total 1800 1350 Balance -1800 -450 Intake: Oral 900 Output: Urine 1800 1350 Uretheral (Silva) 1250 Other: Voiding Method Urinal Indwelling Catheter - Exam Patient is awake, alert, and oriented 3. His abdomen is distended and firm. Dressings are intact, there is a small amount of drainage on the left dressing. His abdomen is soft and nontender. Dorsiflexion, plantarflexion, extensor hallucis longus positive sustaining bilaterally, no weakness noted on the right side. Calves are soft and nontender. The patient has full foot and ankle motion without difficulty. Patient's bilateral lower extremities are neurovascular intact. - Labs CBC & Chem 7: 06/16/23 07:18 06/16/23 07:18 Assessment and Plan (1) Lumbar spinal stenosis Current Visit: Yes Status: Acute Code(s): M48.061 - SPINAL STENOSIS, LUMBAR REGION WITHOUT NEUROGENIC MEGHA SNOMED Code(s): 73704630 (2) Lumbar disc disease with radiculopathy Current Visit: Yes Status: Acute Code(s): M51.16 - INTERVERTEBRAL DISC DISORDERS W RADICULOPATHY, LUMBAR REGION SNOMED Code(s): 287585016 (3) Status post lumbar spinal fusion Current Visit: Yes Status: Acute Code(s): Z98.1 - ARTHRODESIS STATUS SNOMED Code(s): 73524809915504
--- NOTE | 2023-06-19 13:58 | XR ---
EXAMINATION TYPE: XR abdomen 2V DATE OF EXAM: 06/19/2023 COMPARISON: NONE HISTORY: Pain TECHNIQUE: Single supine KUB image of the abdomen is obtained FINDINGS: Dilated small bowel measuring up to 5.6 cm. There are also distended segments of large bowel. Finding s could reflect ileus. Distal obstruction however is difficult to exclude. Progress study is recommen ded. No convincing evidence for pneumoperitoneum. No unusual calcifications. The lung bases are clear. The osseous structures are intact. IMPRESSION: 1. Dilated small bowel measuring up to 5.6 cm. There are also distended segments of large bowel. Fin dings could reflect ileus. Distal obstruction however is difficult to exclude. Progress study is jeremiah mmended.
--- NOTE | 2023-06-19 15:21 | P.PN ---
Progress Note - Text Progress Note Date: 06/19/23 - Chief Complaint Lumbar surgery - History of Present Illness This is a pleasant 62-year-old patient who follows with Dr. Tessa Lentz. Chronic stable medical conditions include GERD, hypertension, hyperlipidemia, obstructive sleep apnea pending CPAP, and a prior history of DVT with COVID. Patient had chronic low back pain with radiation down both legs. Symptoms had not been controlled conservatively. Patient has severe spinal stenosis with radiculopathy and disc herniation. Patient with surgical intervention yesterday by Dr. Melendez. Today sitting up in a chair. Did take a few steps in the room. Pain is present. No nausea vomiting. Some lightheaded. Ate some breakfast this morning. He did use a walker today. No bowel movement. Silva catheter June 17: Patient did walk with a walker today. Pain present. Silva catheter was removed. No bowel movement. Did tolerate diet. June 18: Patient is having some trouble with making urine. Had to be straight catheterized x 2. No prior problem. Given patient's age likely BPH. Flomax been added. No bowel movement. Pain is better. Did walk a bit in the hallway. present. June 19: Rather distended abdomen. Has had no bowel movement with lactulose/Dulcolax. Also did not respond to soapsuds enema. Nausea. Clinical suspicion for ileus is high.. I ordered abdominal x-ray. Small bowel ileus confirmed. NG tube to intermittent suction with medications. Otherwise n.p.o. consult general surgery. IV fluids Active Medications Hydrocodone Bitart/Acetaminophen (Hydrocodone/Apap 5-325mg 1 Each Tab) 1 each PO Q4HR PRN PRN Reason: Pain Stop: 07/15/23 16:39 Last Admin: 06/19/23 10:47 Dose: 1 each Amlodipine Besylate (Amlodipine 10 Mg Tab) 10 mg PO DAILY MANJEET Stop: 07/16/23 09:01 Last Admin: 06/19/23 08:27 Dose: 10 mg Aspirin (Aspirin 81 Mg) 81 mg PO DAILY MANJEET Stop: 07/16/23 09:01 Last Admin: 06/19/23 08:27 Dose: 81 mg Atorvastatin Calcium (Atorvastatin 80 Mg Tab) 80 mg PO HS MANJEET Stop: 07/15/23 21:01 Last Admin: 06/18/23 20:15 Dose: 80 mg Benzocaine/Menthol (Benzocaine/Menthol Lozeng 1 Each Lozenge) 1 each MUCOUS MEM Q4HR PRN PRN Reason: Sore Throat Stop: 07/15/23 16:39 Cyclobenzaprine HCl (Cyclobenzaprine 10 Mg Tab) 10 mg PO TID PRN PRN Reason: Muscle Spasm Stop: 07/15/23 16:40 Last Admin: 06/19/23 02:19 Dose: 10 mg Fenofibrate (Fenofibrate 160 Mg Tab) 160 mg PO DAILY [facility] Stop: 07/16/23 09:01 Last Admin: 06/19/23 08:26 Dose: 160 mg Fluticasone Propionate (Fluticasone 50mcg/[place] Nasal 16gm) 2 spray EA NOSTRIL DAILY [facility] Stop: 07/16/23 09:01 Last Admin: 06/19/23 08:27 Dose: 2 spray Hydromorphone HCl (Hydromorphone 0.5 Mg/0.5 Ml Syringe) 0.5 mg IVP Q4HR PRN PRN Reason: Pain Stop: 07/15/23 16:39 Hydromorphone HCl (Hydromorphone 1 Mg/Ml 1 Ml Syringe) 1 mg IVP Q4HR PRN PRN Reason: Pain Stop: 07/15/23 16:39 Last Admin: 06/17/23 15:13 Dose: 1 mg Lactated Ringer's (Lactated Ringers) 1,000 mls @ 20 mls/hr IV .Q24H [facility] Stop: 07/15/23 08:23 Last Admin: 06/18/23 19:30 Dose: Not Given Sodium Chloride (Saline 0.9%) 1,000 mls @ 75 mls/hr IV .[id number] [facility] Stop: 07/15/23 16:46 Last Admin: 06/19/23 00:07 Dose: Not Given Lisinopril (Lisinopril 20 Mg Tab) 40 mg PO BID [facility] Stop: 07/15/23 21:01 Last Admin: 06/19/23 08:26 Dose: 40 mg Magnesium Hydroxide (Magnesium Hydroxide 2,400 Mg/30 Ml Cup) 2,400 mg PO DAILY PRN PRN Reason: Constipation Stop: 07/15/23 16:40 Last Admin: 06/19/23 06:37 Dose: 2,400 mg Metoprolol Succinate (Metoprolol Succinate (Er) 100 Mg Tab.Er.24h) 100 mg PO DAILY [facility] Stop: 07/16/23 09:01 Last Admin: 06/19/23 08:27 Dose: 100 mg Multivitamins (Multivitamins, Thera 1 Each Tab) 1 each PO DAILY [facility] Stop: 07/16/23 09:01 Last Admin: 06/19/23 08:27 Dose: 1 each Ondansetron HCl (Ondansetron 4 Mg/2 Ml Vial) 4 mg IVP Q8HR PRN PRN Reason: Nausea And Vomiting Stop: 07/15/23 16:40 Pantoprazole Sodium (Pantoprazole 40 Mg Tablet) 40 mg PO AC-BRKFST [facility] Stop: 07/16/23 07:31 Last Admin: 06/19/23 06:35 Dose: 40 mg Senna/Docusate Sodium (Sennosides-Docusate Sodium 1 Each Tab) 2 each PO HS [facility] Last Admin: 06/18/23 20:15 Dose: 2 each Tamsulosin HCl (Tamsulosin 0.4 Mg Cap.Er.24h) 0.4 mg PO PC-BRKFST [facility] Last Admin: 06/19/23 08:26 Dose: 0.4 mg Social history: 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 Smokes marijuana rarely. Non-smoker. Alcohol occasionally. Physical examination: VITAL SIGNS: 97.8, 99, 18, 150/73, 94% room air GENERAL: Sitting up in the chair. A bit uncomfortable EYES: Pupils equal. Conjunctiva caroline l. HEENT: External appearance of nose and ears normal, oral cavity grossly normal. NECK: JVD not raised; masses not palpable. HEART: First and second heart sounds are normal; no edema. LUNGS: Respiratory rate normal; clear to auscultation. ABDOMEN: Soft, distended. Sluggish bowel sounds nontender, liver spleen not palpable, no masses palpable. PSYCH: Alert and oriented x3; mood and affect a bit anxious. MUSCULOSKELETAL:No Clubbing/cyanosis;muscles-grossly intact. Dressing over the incision site INVESTIGATIONS, reviewed in the clinical context: June 16, 2023: White count 14.2 hemoglobin 12.5 platelets 227 potassium 3.8 creatinine 0.9 Assessment plan: -Severe spinal stenosis L3-4 L4-5, degenerative disc disease L3-4 L4-5, disc herniation L3-4 L4-5, neurogenic claudication, lower extremity radiculopathy, lower extremity weakness, facet arthrosis, degenerative scoliosis Laminectomy bilateral decompression discectomy etc. with Dr. Melendez on June 15 Pain control. Activity as tolerated. -Acute small bowel ileus. Postop. Precipitated by decreased activity and pain medications Make NPO. NG tube to low intermittent suction. Okay for medications. Consult surgery. -Leukocytosis, reactive. Currently no obvious evidence of infection -Essential hypertension Amlodipine 10 mg a day. Toprol XL 100 mg a day. Vasotec 20 mg twice daily -Muscle spasms -Hyperlipidemia Crestor 40 mg nightly -Bladder outflow obstruction with intermittent decreased urine output. Patient had to have straight catheterization x 2. Likely BPH. Flomax 0.4 mg started today. Discussed with patient and . -GERD PPI -Obstructive sleep apnea Pending CPAP -Obesity BMI 33.9 Weight loss measures Thank you Dr. Melendez - Past Medical History Past Medical History: Deep Vein Thrombosis (DVT), GERD/Reflux, Hyperlipidemia, Hypertension, Sleep Apnea/CPAP/BIPAP Additional Past Medical History / Comment(s): DVT in lungs when he had COVID, "I've been told I snore a lot." "I'm going to have testing for it after my back surgery.", numbness to bi lat legs and feet. History of Any Multi-Drug Resistant Organisms: None Reported Past Surgical History: Hernia Repair, Orthopedic Surgery, Tonsillectomy Additional Past Surgical History / Comment(s): Umbilical hernia repair, Rt meniscus surgery, colonoscopy. Past Anesthesia/Blood Transfusion Reactions: Previous Problems w/ Anesthesia Additional Past Anesthesia/Blood Transfusion Reaction / Comm: "I was slow to wake up." Past Psychological History: No Psychological Hx Reported Smoking Status: Never smoker Past Alcohol Use History: Occasional Past Drug Use History: Marijuana Additional Drug Use History / Comment(s): "I smoke Marijuana 2-3 times a year." Pt instructed to not use Marijuana 24 hours prior to surgery.
--- NOTE | 2023-06-19 16:36 | XR ---
EXAMINATION TYPE: XR chest 1V portable DATE OF EXAM: 06/19/2023 COMPARISON: NONE HISTORY: NG tube placement TECHNIQUE: Single frontal view of the chest is obtained. FINDINGS: There is an NG tube tip projecting into the stomach just beyond the expected GE junction. There is no focal air space opacity, pleural effusion, or pneumothorax seen. The cardiac silhouette size is within normal limits. The osseous structures are intact. IMPRESSION: 1. NG tube within the stomach fundus as described above. 2. No acute cardiopulmonary disease.
[2023-06-19] MEDS: LACTATED RINGERS 1,000 ML IV SCH (19:27)
[2023-06-20] MEDS: ONDANSETRON 4 MG/2 ML VIAL IVP PRN (05:35)
[2023-06-20 07:22] LABS: African American GFR (CKD) >90 (>60 ml/min/1.73 sqM); Anion Gap 13 mmol/L; Blood Urea Nitrogen 26 mg/dL (9-20); Calcium 9.2 mg/dL (8.4-10.2); Carbon Dioxide 20 mmol/L (22-30); Chloride 101 mmol/L (98-107); Glucose 162 mg/dL (74-99); Non-African American GFR(CKD) >90 (>60 ml/min/1.73 sqM); Potassium 3.7 mmol/L (3.5-5.1); Sodium 134 mmol/L (137-145)
--- NOTE | 2023-06-20 08:54 | P.PN ---
Progress Note - Text Progress Note Date: 06/20/23 Orthopedic Spine History of present illness: Patient is a pleasant 62-year-old male who is seen and examined at the bedside following posterior lateral decompression and fusion performed to last Tuesday. Had significant difficulty over the weekend. He was experiencing right lower extremity radiculopathy pain but that has been improving. He does have some ongoing low back pain at the surgical sites. His pain is well- controlled overall in that regard. Most significantly, he has significant constipation with abdominal pain. NG tube was placed yesterday with 1200 mL of fluid removed with the NG tube. NG tube is currently intact. Consultation has been placed for Dr. Moran in general surgery. His fluid intake is currently limited. He is being evaluated for possible ileus. His Silva catheter was also previously removed but he has been unable to urinate independently. His Silva catheter was reinserted. This Silva catheter is currently intact. We will plan for consultation with urology. He does utilize an incentive spirometer. He is requiring assistance with a walker to aid in ambulation. His ambulation is slow. He is working with physical therapy. He does have a walker for home use. Currently does not complain of fever or chills. Patient is being seen and examined by medicine for his multiple other medical diagnoses. Physical Exam Lumbar Fusion: Status post surgical day number 5 Patient is awake, alert, and oriented 3 Vital signs stable Good chest excursion with deep inspiration and expiration Abdomen appears distended NG tube intact Dorsiflexion, plantarflexion, and extensor hallucis longus positive sustained bilaterally No signs or symptoms of DVT; no calf pain; pneumatic cuffs intact bilateral lower extremities Silva catheter intact Assessment: Status post L3-4 and L4-5 minimally invasive posterior lateral decompression and fusion with transforaminal lumbar interbody fusion Low back pain L3-4 and L4-5 severe spinal stenosis L3-4 and L4-5 degenerative disc disease Neurogenic claudication Lower extremity radiculopathy Lumbar facet arthrosis Degenerative scoliosis L3-4 and L4-5 herniated nucleus pulposus Lower extremity radiculopathy Lumbar muscle spasm Constipation Abdominal pain NG tube intact Urinary retention with Silva catheter intact Hyperlipidemia Essential hypertension Obstructive sleep apnea Obesity Plan: We will continue to follow the patient closely; patient continues to have difficulty with mobilization and ambulation postoperatively. He has been working with physical therapy and is progressing slowly. He has been utilizing a walker. He continues to require IV and oral medications for pain control. I do not feel the patient is ready for discharge home. Patient will continue to remain in the hospital until his symptoms improve and his pain is better controlled. We will plan to have the patient be admitted to in patient status during his admission. Over the weekend he is also began to have significant other medical difficulties including constipation and urinary retention. NG tube has been placed. Consultation has been placed for general surgery. Patient is being evaluated for possible ileus. A Silva catheter has also been reinserted due to his urinary retention postoperatively. He will need clearance by multiple medical providers prior to discharge home. 1. Ambulate as tolerated; work with Physical Therapy to increase mobilization 2. Continue pain control with IV and oral medications; currently, we will try to limit the patient's narcotic medications due to his constipation MAPS has been previously reviewed. An "Opiod Start Talking" Form has been signed and placed in the patient's chart. A prescription has been written for hydrocodone 5 mg / 325 mg, 1 tab, every 4 hours, as needed for acute pain, dispense #42. Prescriptions were originally sent to [facility] located [facility] but these medications were canceled over the weekend with medication prescription sent to his local pharmacy. Patient was also sent prescriptions for cyclobenzaprine 10 mg, 1 tab, 3 times daily, as needed for muscle spasm, dispense #60 and Senokot-S, 1 tab, twice daily, as needed for constipation, dispense #60. 3. Dressings to remain intact with Optifoam; patient may shower with dressings intact 4. Medical management can continue to manage patient for patient's other medical diagnoses 5. Patient currently waiting for consultation by Dr. Moran in general surgery for evaluation of his abdomen 6. We will plan for consultation with urology for evaluation of his postoperative urinary retention; Silva catheter intact after reinsertion 7. We will continue to follow the patient closely; patient will need clearance by multiple medical providers prior to discharge home 8. Patient can follow-up with Pedro Dia PA-C or Dr. Ben Melendez at [facility] in 2-3 weeks following discharge
--- NOTE | 2023-06-20 12:57 | P.GSCN ---
History of Present Illness Consult date: 06/20/23 History of present illness: CHIEF COMPLAINT: Back pain Reason for consult ileus HISTORY OF PRESENT ILLNESS: This is a 62-year-old male who is postop day# 5 status post spinal surgery with Dr. Melendez. Patient reports that he did have a very small BM yesterday and a small amount of flatus. He reports that he became very nauseous yesterday and his abdomen became distended with diffuse tenderness. Abdominal x-ray completed yesterday reported dilated small bowel measuring up to 5.6 cm. Also distended segments of large bowel. Findings could reflect ileus. Patient had NG tube placed with 700 mL output and 400 mL output this morning. He is currently sitting in bedside chair. He reports there has been some improvement in the abdominal distention. He reports prior to even surgery he had been having abdominal bloating over the last 3 to 4 months. Prior abdominal surgical history includes umbilical hernia repair. Last colonoscopy was in December 2021 and he reports it is negative. PAST MEDICAL HISTORY: See below PAST SURGICAL HISTORY: See below MEDICATIONS: See below ALLERGIES: See below SOCIAL HISTORY: No illicit drug use. REVIEW OF SYSTEMS: CONSTITUTIONAL: Denies fever or chills. HEENT: Denies blurred vision, vision changes, or eye pain. Denies hemoptysis CARDIOVASCULAR: Denies chest pain or pressure. RESPIRATORY: No shortness of breath. GASTROINTESTINAL: See HPI for pertinent findings HEMATOLOGIC: Denies bleeding disorders. GENITOURINARY: Denies any blood in urine or increased urinary frequency. SKIN: Denies pruitis. Denies rash. PHYSICAL EXAM: VITAL SIGNS: Reviewed GENERAL: Well-developed in no acute distress. HEENT: No sclera icterus. Extraocular movements grossly intact. Moist buccal mucosa. Head is atraumatic, normocephalic. No nasal drainage. ABDOMEN: Distended. Mild diffuse tenderness. Tympanic. NEUROLOGIC: Alert and oriented. Cranial nerves II through XII grossly intact. LABORATORY DATA: WBC 14.21 Hgb 12.5 platelets 207 Sodium 134 potassium 3.7 creatinine 0.82 IMAGING: Abdominal x-ray as stated above ASSESSMENT: 1. Ileus likely secondary to recent spinal surgery PLAN: -Continue NG tube for decompression -Keep patient n.p.o. -Add Reglan 10 mg IV every 6 -Dulcolax suppository ordered -Encourage patient to increase activity level -Repeat abdominal x-ray in a.m. Thank you for this consultation Physician Poker Manager note has been reviewed by physician. Signing provider agrees with the documented findings, assessment, and plan of care. I have personally seen and examined the patient, reviewed the SUBACUTE NURSE /PAs history, exam and MDM and agree with the assessment and plan as written. Based on total visit time, I have performed more than 50% of the visit. As above: Patient with abdominal bloating and pain. Pain resolved for the most part after nasogastric decompression. X-rays show large and small bowel ileus. Add Reglan and Dulcolax for suppositories. Chewing gum as needed. Repeat ab dominal x-rays tomorrow. Ambulate. Past Medical History Past Medical History: Deep Vein Thrombosis (DVT), GERD/Reflux, Hyperlipidemia, Hypertension, Sleep Apnea/CPAP/BIPAP Additional Past Medical History / Comment(s): DVT in lungs when he had COVID, "I've been told I snore a lot." "I'm going to have testing for it after my back surgery.", numbness to bi lat legs and feet. History of Any Multi-Drug Resistant Organisms: None Reported Past Surgical History: Hernia Repair, Orthopedic Surgery, Tonsillectomy Additional Past Surgical History / Comment(s): Umbilical hernia repair, Rt meniscus surgery, colonoscopy. Past Anesthesia/Blood Transfusion Reactions: Previous Problems w/ Anesthesia Additional Past Anesthesia/Blood Transfusion Reaction / Comm: "I was slow to wake up." Past Psychological History: No Psychological Hx Reported Smoking Status: Never smoker Past Alcohol Use History: Occasional Past Drug Use History: Marijuana Additional Drug Use History / Comment(s): "I smoke Marijuana 2-3 times a year." Pt instructed to not use Marijuana 24 hours prior to surgery. - Past Family History Father Family Medical History: Cancer Additional Family Medical History / Comment(s): Esophageal and pancreas Medications and Allergies Home Medications Medication Instructions Recorded Confirmed Type Aspirin 81 mg PO DAILY 06/09/23 06/15/23 History Calcium Phos/D3/Magnesium/Zinc 1 each PO DAILY 06/09/23 06/15/23 History [Pwwwzyh-Cxs-Hmoa-Vitamin D3] Enalapril Maleate [Vasotec] 20 mg PO BID 06/09/23 06/15/23 History Fenofibrate 160 mg PO DAILY 06/09/23 06/15/23 History Fluticasone Nasal [facility] [Flonase 2 spray EA NOSTRIL DAILY 06/09/23 06/15/23 History Nasal [facility]] Ibuprofen [Motrin] 800 mg PO Q6H PRN 06/09/23 06/15/23 History Metoprolol Succinate (ER) [Toprol 100 mg PO DAILY 06/09/23 06/15/23 History Xl] Multivitamins, Thera [Multivitamin 1 tab PO DAILY 06/09/23 06/15/23 History (formulary)] Omeprazole [PriLOSEC] 20 mg PO AC-BRKFST 06/09/23 06/15/23 History Rosuvastatin Calcium [Crestor] 40 mg PO HS 06/09/23 06/15/23 History Sildenafil Citrate 100 mg PO DIRECTED PRN 06/09/23 06/15/23 History amLODIPine [Norvasc] 10 mg PO DAILY 06/09/23 06/15/23 History Cyclobenzaprine [Flexeril] 10 mg PO TID PRN #60 tab 06/17/23 Rx HYDROcodone/APAP 5-325MG [[place] 5] 1 each PO Q4HR PRN #42 tab 06/17/23 Rx Sennosides-Docusate Sodium 1 tab PO BID PRN #60 tablet 06/17/23 Rx [Senokot-S] Sennosides-Docusate Sodium 1 tab PO BID PRN #60 tablet 06/17/23 Rx [Senokot-S] Allergies Allergy/AdvReac Type Severity Reaction Status Date / Time acetaminophen Allergy Nausea Verified 06/15/23 11:11 [From Darvocet-N] propoxyphene Allergy Nausea Verified 06/15/23 11:11 [From Darvocet-N] Surgical - Exam Vital Signs Temp Pulse Resp BP Pulse Ox 97.3 F L 99 16 152/78 97 06/15/23 11:07 06/15/23 11:07 06/15/23 11:07 06/15/23 11:07 06/15/23 11:07 Results - Labs 06/16/23 07:18 06/20/23 05:50 Abnormal Lab Results - Last 24 Hours (Table) 06/20/23 Range/Units 05:50 Sodium 134 L (137-145) mmol/L Carbon Dioxide 20 L (22-30) mmol/L BUN 26 H (9-20) mg/dL Glucose 162 H (74-99) mg/dL Diabetes panel 06/20/23 Range/Units 05:50 Sodium 134 L (137-145) mmol/L Potassium 3.7 (3.5-5.1) mmol/L Chloride 101 (98-107) mmol/L Carbon Dioxide 20 L (22-30) mmol/L BUN 26 H (9-20) mg/dL Creatinine 0.82 (0.66-1.25) mg/dL Glucose 162 H (74-99) mg/dL Calcium 9.2 (8.4-10.2) mg/dL Calcium panel 06/20/23 Range/Units 05:50 Calcium 9.2 (8.4-10.2) mg/dL Pituitary panel 06/20/23 Range/Units 05:50 Sodium 134 L (137-145) mmol/L Potassium 3.7 (3.5-5.1) mmol/L Chloride 101 (98-107) mmol/L Carbon Dioxide 20 L (22-30) mmol/L BUN 26 H (9-20) mg/dL Creatinine 0.82 (0.66-1.25) mg/dL Glucose 162 H (74-99) mg/dL Calcium 9.2 (8.4-10.2) mg/dL Adrenal panel 06/20/23 Range/Units 05:50 Sodium 134 L (137-145) mmol/L Potassium 3.7 (3.5-5.1) mmol/L Chloride 101 (98-107) mmol/L Carbon Dioxide 20 L (22-30) mmol/L BUN 26 H (9-20) mg/dL Creatinine 0.82 (0.66-1.25) mg/dL Glucose 162 H (74-99) mg/dL Calcium 9.2 (8.4-10.2) mg/dL
[2023-06-20] MEDS: bisacodyL 10 MG SUPP RECTAL STA (14:26)
[2023-06-20] MEDS: METOCLOPRAMIDE 5 MG/ML 2 ML VIAL IVP SCH (14:27)
--- NOTE | 2023-06-20 15:50 | P.PN ---
Progress Note - Text Progress Note Date: 06/20/23 - Chief Complaint Lumbar surgery - History of Present Illness This is a pleasant 62-year-old patient who follows with Dr. Tessa Lentz. Chronic stable medical conditions include GERD, hypertension, hyperlipidemia, obstructive sleep apnea pending CPAP, and a prior history of DVT with COVID. Patient had chronic low back pain with radiation down both legs. Symptoms had not been controlled conservatively. Patient has severe spinal stenosis with radiculopathy and disc herniation. Patient with surgical intervention yesterday by Dr. Melendez. Today sitting up in a chair. Did take a few steps in the room. Pain is present. No nausea vomiting. Some lightheaded. Ate some breakfast this morning. He did use a walker today. No bowel movement. Silva catheter June 17: Patient did walk with a walker today. Pain present. Silva catheter was removed. No bowel movement. Did tolerate diet. June 18: Patient is having some trouble with making urine. Had to be straight catheterized x 2. No prior problem. Given patient's age likely BPH. Flomax been added. No bowel movement. Pain is better. Did walk a bit in the hallway. present. June 19: Rather distended abdomen. Has had no bowel movement with lactulose/Dulcolax. Also did not respond to soapsuds enema. Nausea. Clinical suspicion for ileus is high.. I ordered abdominal x-ray. Small bowel ileus confirmed. NG tube to intermittent suction with medications. Otherwise n.p.o. consult general surgery. IV fluids June 20: NG tube. To suction. Had 1100 cc output from gastric drainage. Also has a Silva catheter. Trial DC Silva in the morning. Clinically ileus persist. Chewing gum ordered. No flatus. No abdominal pain Active Medications Hydrocodone Bitart/Acetaminophen (Hydrocodone/Apap 5-325mg 1 Each Tab) 1 each PO Q4HR PRN PRN Reason: Pain Stop: 07/15/23 16:39 Last Admin: 06/20/23 06:31 Dose: 1 each Amlodipine Besylate (Amlodipine 10 Mg Tab) 10 mg PO DAILY [facility] Stop: 07/16/23 09:01 Last Admin: 06/20/23 10:25 Dose: 10 mg Aspirin (Aspirin 81 Mg) 81 mg PO DAILY [facility]JE[facility] Stop: 07/16/23 09:01 Last Admin: 06/20/23 10:25 Dose: 81 mg Atorvastatin Calcium (Atorvastatin 80 Mg Tab) 80 mg PO HS [facility] Stop: 07/15/23 21:01 Last Admin: 06/19/23 20:46 Dose: 80 mg Benzocaine/Menthol (Benzocaine/Menthol Lozeng 1 Each Lozenge) 1 each MUCOUS MEM Q4HR PRN PRN Reason: Sore Throat Stop: 07/15/23 16:39 Cyclobenzaprine HCl (Cyclobenzaprine 10 Mg Tab) 10 mg PO TID PRN PRN Reason: Muscle Spasm Stop: 07/15/23 16:40 Last Admin: 06/19/23 20:46 Dose: 10 mg Fenofibrate (Fenofibrate 160 Mg Tab) 160 mg PO DAILY [facility] Stop: 07/16/23 09:01 Last Admin: 06/20/23 10:25 Dose: 160 mg Fluticasone Propionate (Fluticasone 50mcg/[place] Nasal 16gm) 2 spray EA NOSTRIL DAILY [facility] Stop: 07/16/23 09:01 Last Admin: 06/20/23 10:26 Dose: Not Given Hydromorphone HCl (Hydromorphone 0.5 Mg/0.5 Ml Syringe) 0.5 mg IVP Q4HR PRN PRN Reason: Pain Stop: 07/15/23 16:39 Hydromorphone HCl (Hydromorphone 1 Mg/Ml 1 Ml Syringe) 1 mg IVP Q4HR PRN PRN Reason: Pain Stop: 07/15/23 16:39 Last Admin: 06/17/23 15:13 Dose: 1 mg Lactated Ringer's (Lactated Ringers) 1,000 mls @ 125 mls/hr IV .Q8H [facility] Last Admin: 06/20/23 10:25 Dose: Not Given Lisinopril (Lisinopril 20 Mg Tab) 40 mg PO BID [facility] Stop: 07/15/23 21:01 Last Admin: 06/20/23 10:24 Dose: 40 mg Magnesium Hydroxide (Magnesium Hydroxide 2,400 Mg/30 Ml Cup) 2,400 mg PO DAILY PRN PRN Reason: Constipation Stop: 07/15/23 16:40 Last Admin: 06/19/23 06:37 Dose: 2,400 mg Metoclopramide HCl (Metoclopramide 5 Mg/Ml 2 Ml Vial) 10 mg IVP Q6HR [facility] Last Admin: 06/20/23 14:27 Dose: 10 mg Metoprolol Succinate (Metoprolol Succinate (Er) 100 Mg Tab.Er.24h) 100 mg PO DAILY [facility] Stop: 07/16/23 09:01 Last Admin: 06/20/23 10:25 Dose: 100 mg Multivitamins (Multivitamins, Thera 1 Each Tab) 1 each PO DAILY [facility] Stop: 07/16/23 09:01 Last Admin: 06/20/23 10:25 Dose: 1 each Ondansetron HCl (Ondansetron 4 Mg/2 Ml Vial) 4 mg IVP Q8HR PRN PRN Reason: Nausea And Vomiting Stop: 07/15/23 16:40 Last Admin: 06/20/23 05:35 Dose: 4 mg Pantoprazole Sodium (Pantoprazole 40 Mg Tablet) 40 mg PO -BRKFST [facility] Stop: 07/16/23 07:31 Last Admin: 06/20/23 06:31 Dose: 40 mg Senna/Docusate Sodium (Sennosides-Docusate Sodium 1 Each Tab) 2 each PO HS [facility] Last Admin: 06/19/23 22:18 Dose: Not Given Tamsulosin HCl (Tamsulosin 0.4 Mg Cap.Er.24h) [facility].4 [facility] Last Admin: 06/20/23 10:24 Dose: 0.4 mg 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 Smokes marijuana rarely. Non-smoker. Alcohol occasionally. Physical examination: VITAL SIGNS: 99, 97, 17, 148/79, 91% room air GENERAL: Sitting up in the chair. A bit uncomfortable EYES: Pupils equal. Conjunctiva caroline l. HEENT: External appearance of nose and ears normal, oral cavity grossly normal. NG tube to suction NECK: JVD not raised; masses not palpable. HEART: First and second heart sounds are normal; no edema. LUNGS: Respiratory rate normal; clear to auscultation. ABDOMEN: Soft, distended. Sluggish bowel sounds nontender, liver spleen not palpable, no masses palpable. PSYCH: Alert and oriented x3; mood and affect a bit anxious. MUSCULOSKELETAL:No Clubbing/cyanosis;muscles-grossly intact. Dressing over the incision site INVESTIGATIONS, reviewed in the clinical context: June 20: Sodium 134 potassium 3.7 creatinine 0.82 June 16, 2023: White count 14.2 hemoglobin 12.5 platelets 227 potassium 3.8 creatinine 0.9 Assessment plan: -Severe spinal stenosis L3-4 L4-5, degenerative disc disease L3-4 L4-5, disc herniation L3-4 L4-5, neurogenic claudication, lower extremity radiculopathy, lower extremity weakness, facet arthrosis, degenerative scoliosis Laminectomy bilateral decompression discectomy etc. with Dr. Melendez on June 15 Pain control. Activity as tolerated. -Acute small bowel ileus. Postop. Precipitated by decreased activity and pain medications: Not improving Make NPO. NG tube to low intermittent suction. Continue. Oral medications. Surgery following -Leukocytosis, reactive. Currently no obvious evidence of infection -Essential hypertension Amlodipine 10 mg a day. Toprol XL 100 mg a day. Vasotec 20 mg twice daily -Muscle spasms -Hyperlipidemia Crestor 40 mg nightly -Bladder outflow obstruction with intermittent decreased urine output. Patient had to have straight catheterization x 2. Likely BPH. Flomax 0.4 mg started today. Try DC Silva in the morning. -GERD PPI -Obstructive sleep apnea Pending CPAP -Obesity BMI 33.9 Weight loss measures Continue NG tube to suction. Try DC trial Silva in the morning. Repeat abdominal x-ray in the morning. Thank you Dr. Melendez - Past Medical History Past Medical History: Deep Vein Thrombosis (DVT), GERD/Reflux, Hyperlipidemia, Hypertension, Sleep Apnea/CPAP/BIPAP Additional Past Medical History / Comment(s): DVT in lungs when he had COVID, "I've been told I snore a lot." "I'm going to have testing for it after my back surgery.", numbness to bi lat legs and feet. History of Any Multi-Drug Resistant Organisms: None Reported Past Surgical History: Hernia Repair, Orthopedic Surgery, Tonsillectomy Additional Past Surgical History / Comment(s): Umbilical hernia repair, Rt meniscus surgery, colonoscopy. Past Anesthesia/Blood Transfusion Reactions: Previous Problems w/ Anesthesia Additional Past Anesthesia/Blood Transfusion Reaction / Comm: "I was slow to wake up." Past Psychological History: No Psychological Hx Reported Smoking Status: Never smoker Past Alcohol Use History: Occasional Past Drug Use History: Marijuana Additional Drug Use History / Comment(s): "I smoke Marijuana 2-3 times a year." Pt instructed to not use Marijuana 24 hours prior to surgery.
--- NOTE | 2023-06-21 07:36 | XR ---
EXAMINATION TYPE: XR abdomen 2V DATE OF EXAM: 06/21/2023 6:52 AM CLINICAL INDICATION:Male, 62 years old with history of Follow-up ileus; [facility] COMPARISON: 06/19/2023. TECHNIQUE: One radiographic view of the abdomen was obtained. FINDINGS/IMPRESSION: * Nasogastric tube terminating in the esophagus and advancement of at least 12.5 cm recommended for optimal placement. Gaseous dilation of multiple loops of bowel within the abdomen related for ileus a nd/or obstruction. Findings not significantly changed from 06/19/2023. * Fixation hardware in the lumbar spine appears intact.
--- NOTE | 2023-06-21 08:29 | P.PN ---
Progress Note - Text Progress Note Date: 06/21/23 Orthopedic Spine History of present illness: Patient is a pleasant 62-year-old male who is seen and examined at the bedside following posterior lateral decompression and fusion performed to last Tuesday. He had significant difficulty over the weekend. He was experiencing right lower extremity radiculopathy pain but that has been improving it has continued to improve. He is not currently complaining of any significant back pain or lower extremity radiculopathy. He is happy with his progress from a lumbar surgical standpoint. His pain is well-controlled overall in that regard. Most significantly, he has significant constipation with abdominal pain. NG tube was placed he is to remain intact. Seen by general surgery who is currently plan to continue with conservative treatment. He has been passing gas and was able to have a small bowel movement. X-ray imaging of the abdomen was performed this morning which shows gaseous dilation of multiple loops of bowel within the abdomen related for ileus and/or obstruction without significant change as compared to previous study taken on 06/19/2023. Will continue with recommendations per general surgery. His Silva catheter was also previously removed but he has been unable to urinate independently. His Silva catheter was reinserted. This Silva catheter is currently intact. We will plan for consultation with urology. He does utilize an incentive spirometer. He is requiring assistance with a walker to aid in ambulation. His ambulation is slow. He is working with physical therapy. He does have a walker for home use. Currently does not complain of fever or chills. Patient is being seen and examined by medicine for his multiple other medical diagnoses. Physical Exam Lumbar Fusion: Status post surgical day number 6 Patient is awake, alert, and oriented 3 Vital signs stable Good chest excursion with deep inspiration and expiration Abdomen appears distended NG tube intact Dorsiflexion, plantarflexion, and extensor hallucis longus positive sustained bilaterally No signs or symptoms of DVT; no calf pain; pneumatic cuffs intact bilateral lower extremities Silva catheter intact Dressing over the lumbar spine of right iliac crest is removed during physical examination No active drainage from the surgical sites No erythema, significant bruising, or obvious sign of infection over the surgical sites Assessment: Status post L3-4 and L4-5 minimally invasive posterior lateral decompression and fusion with transforaminal lumbar interbody fusion Low back pain L3-4 and L4-5 severe spinal stenosis L3-4 and L4-5 degenerative disc disease Neurogenic claudication Lower extremity radiculopathy Lumbar facet arthrosis Degenerative scoliosis L3-4 and L4-5 herniated nucleus pulposus Lower extremity radiculopathy Lumbar muscle spasm Constipation Abdominal pain NG tube intact Urinary retention with Silva catheter intact Hyperlipidemia Essential hypertension Obstructive sleep apnea Obesity Plan: We will continue with our plan as set forth yesterday. We will continue to follow the patient closely; patient continues to have difficulty with mobilization and ambulation postoperatively. He has been working with physical therapy and is progressing. Making good progress in regards to his lumbar spine. He has been utilizing a walker. He had more difficulty from an abdomen standpoint. I do not feel the patient is ready for discharge home. Patient will continue to remain in the hospital until his symptoms improve and his pain is better controlled. We will plan to have the patient be admitted to in patient status during his admission. Over the weekend he is also began to have significant other medical difficulties including constipation and urinary retention. NG tube has been placed. Being seen and examined by general surgery who is managing his abdomen. Patient is being evaluated for possible ileus/or obstruction. A Silva catheter has also been reinserted due to his urinary re tention postoperatively. He will need clearance by multiple medical providers prior to discharge home. 1. Ambulate as tolerated; work with Physical Therapy to increase mobilization 2. Continue pain control with IV and oral medications; currently, we will try to limit the patient's narcotic medications due to his constipation MAPS has been previously reviewed. An "Opiod Start Talking" Form has been signed and placed in the patient's chart. A prescription has been written for hydrocodone 5 mg / 325 mg, 1 tab, every 4 hours, as needed for acute pain, dispense #42. Prescriptions were originally sent to [facility] located [facility] but these medications were canceled over the weekend with medication prescription sent to his local pharmacy. Patient was also sent prescriptions for cyclobenzaprine 10 mg, 1 tab, 3 times daily, as needed for muscle spasm, dispense #60 and Senokot-S, 1 tab, twice daily, as needed for constipation, dispense #60. 3. Dressings have been removed. Patient may shower with dressings intact 4. Medical management can continue to manage patient for patient's other medical diagnoses 5. Patient continue to be seen and examined by Dr. Moran in general surgery for stent of his abdomen 6. We will plan for consultation with urology for evaluation of his postoperative urinary retention; Silva catheter intact after reinsertion 7. We will continue to follow the patient closely; patient will need clearance by multiple medical providers prior to discharge home 8. Patient can follow-up with Pedro Dia PA-C or Dr. Ben Melendez at [facility] in 2-3 weeks following discharge
--- NOTE | 2023-06-21 10:42 | CDI ---
Documentation Clarification Form Date: 06/21/2023 10:05:58 AM From: Carmencita Bryant RN, CCDS Phone: [phone] Admit Date: 06/16/2023 05:16:00 PM Patient Name: Tim Soto Visit Number: [id number] Discharge Date: ATTENTION: The Clinical Documentation Specialists (CDI) and [facility] Coding Staff appreciate your assistance in clarifying documentation. Please respond to the clarification below the line at the bottom and electronically sign. The CDI & [facility] Coding staff will review the response and follow-up if needed. Please note: Queries are made part of the Legal Health Record. If you have any questions, please contact the author of this message via ITS. Dr. Paola Melendez Acute small bowel ileus, Postop is documented in the Internal Medicine progress note on 06/20/23. Additional clarification is requested regarding the relationship, if any, that exists between the diagnosis and the procedure. Patients Admitting Diagnosis: Severe spinal stenosis L3-4 L4-5, degenerative disc disease L3-4 L4-5, disc herniation L3-4 L4-5, neurogenic claudication, lower extremity radiculopathy, lower extremity weakness, facet arthrosis, degenerative scoliosis Post-Operative Diagnosis: Same Procedure performed: L3-4 and L4-5 minimally invasive posterior lateral decompression and fusion with transforaminal lumbar interbody fusion. History/Risk Factors: L3-4 and L4-5 severe spinal stenosis, L3-4 and L4-5 degenerative disc disease, Neurogenic claudication, Hyperlipidemia, Essential hypertension Clinical Indicators: 62-year-old male present for elective L3-4 and L4-5 minimally invasive posterior lateral decompression and fusion with transforaminal lumbar interbody fusion on 06/16/23. 06/19/23 No bowel movement. Rather distended abdomen. Has had no bowel movement with lactulose/Dulcolax. Also did not respond to soapsuds enema. Nausea Clinical suspicion for ileus is high. I ordered abdominal x-ray. Small bowel ileus confirmed. NG tube to intermittent suction with medications. 06/20 IM progress note: Acute small bowel ileus. Postop. Precipitated by decreased activity and pain medications: Not improving Treatment NG tube to intermittent suction with medications. N.P.O. Lactated Ringers IV @125 HR 06/19-2/5 Reglan 10 MG IV Q6 HRS Encourage increase activity level. What relationship, if any, exists between the diagnosis of Acute small bowel ileus, Postop and the procedure: [ ] Acute small bowel ileus is a complication of surgical procedure [ ] Acute small bowel ileus is an expected outcome of the surgical procedure [ ] Acute small bowel ileus is related to patients co-morbid condition(s) of [insert co-morbid dxs] & not a complication of the procedure [ ] Other please specify ____ [ ] Unable to determine (Template Last Revised: July 2020) MTDD
[2023-06-21] MEDS: bisacodyL 10 MG SUPP RECTAL SCH (10:44)
--- NOTE | 2023-06-21 13:46 | P.PN ---
Progress Note - Text Progress Note Date: 06/21/23 - Chief Complaint Lumbar surgery - History of Present Illness This is a pleasant 62-year-old patient who follows with Dr. Tessa Lentz. Chronic stable medical conditions include GERD, hypertension, hyperlipidemia, obstructive sleep apnea pending CPAP, and a prior history of DVT with COVID. Patient had chronic low back pain with radiation down both legs. Symptoms had not been controlled conservatively. Patient has severe spinal stenosis with radiculopathy and disc herniation. Patient with surgical intervention yesterday by Dr. Melendez. Today sitting up in a chair. Did take a few steps in the room. Pain is present. No nausea vomiting. Some lightheaded. Ate some breakfast this morning. He did use a walker today. No bowel movement. Silva catheter June 17: Patient did walk with a walker today. Pain present. Silva catheter was removed. No bowel movement. Did tolerate diet. June 18: Patient is having some trouble with making urine. Had to be straight catheterized x 2. No prior problem. Given patient's age likely BPH. Flomax been added. No bowel movement. Pain is better. Did walk a bit in the hallway. present. June 19: Rather distended abdomen. Has had no bowel movement with lactulose/Dulcolax. Also did not respond to soapsuds enema. Nausea. Clinical suspicion for ileus is high.. I ordered abdominal x-ray. Small bowel ileus confirmed. NG tube to intermittent suction with medications. Otherwise n.p.o. consult general surgery. IV fluids June 20: NG tube. To suction. Had 1100 cc output from gastric drainage. Also has a Silva catheter. Trial DC Silva in the morning. Clinically ileus persist. Chewing gum ordered. No flatus. No abdominal pain Every 6: NG tube. Will intermittent suction. Good output. Very slight decrease in abdominal distention. No flatus. Taking his medications. Abdominal x-ray today shows gaseous dilatation of multiple loops of bowel within the abdomen. No Tumma change from previous x-ray. Active Medications Hydrocodone Bitart/Acetaminophen (Hydrocodone/Apap 5-325mg 1 Each Tab) 1 each PO Q4HR PRN PRN Reason: Pain Stop: 07/15/23 16:39 Last Admin: 06/21/23 10:41 Dose: 1 each Amlodipine Besylate (Amlodipine 10 Mg Tab) 10 mg PO DAILY [facility] Stop: 07/16/23 09:01 Last Admin: 06/21/23 10:41 Dose: 10 mg Aspirin (Aspirin 81 Mg) 81 mg PO DAILY [facility] Stop: 07/16/23 09:01 Last Admin: 06/21/23 10:41 Dose: 81 mg Atorvastatin Calcium (Atorvastatin 80 Mg Tab) 80 mg PO HS [facility] Stop: 07/15/23 21:01 Last Admin: 06/20/23 20:23 Dose: 80 mg Benzocaine/Menthol (Benzocaine/Menthol Lozeng 1 Each Lozenge) 1 each MUCOUS MEM Q4HR PRN PRN Reason: Sore Throat Stop: 07/15/23 16:39 Bisacodyl (Bisacodyl 10 Mg Supp) 10 mg RECTAL DAILY [facility] Last Admin: 06/21/23 10:44 Dose: 10 mg Cyclobenzaprine HCl (Cyclobenzaprine 10 Mg Tab) 10 mg PO TID PRN PRN Reason: Muscle Spasm Stop: 07/15/23 16:40 Last Admin: 06/19/23 20:46 Dose: 10 mg Fenofibrate (Fenofibrate 160 Mg Tab) 160 mg PO DAILY [facility] Stop: 07/16/23 09:01 Last Admin: 06/21/23 10:41 Dose: 160 mg Fluticasone Propionate (Fluticasone 50mcg/[place] Nasal 16gm) 2 spray EA NOSTRIL DAILY [facility] Stop: 07/16/23 09:01 Last Admin: 06/21/23 11:02 Dose: 2 spray Hydromorphone HCl (Hydromorphone 0.5 Mg/0.5 Ml Syringe) 0.5 mg IVP Q4HR PRN PRN Reason: Pain Stop: 07/15/23 16:39 Hydromorphone HCl (Hydromorphone 1 Mg/Ml 1 Ml Syringe) 1 mg IVP Q4HR PRN PRN Reason: Pain Stop: 07/15/23 16:39 Last Admin: 06/17/23 15:13 Dose: 1 mg Lactated Ringer's (Lactated Ringers) 1,000 mls @ 125 mls/hr IV .Q8H [facility] Last Admin: 06/21/23 12:25 Dose: 125 mls/hr Lisinopril (Lisinopril 20 Mg Tab) 40 mg PO BID [facility] Stop: 07/15/23 21:01 Last Admin: 06/21/23 10:46 Dose: 40 mg Magnesium Hydroxide (Magnesium Hydroxide 2,400 Mg/30 Ml Cup) 2,400 mg PO DAILY PRN PRN Reason: Constipation Stop: 07/15/23 16:40 Last Admin: 06/19/23 06:37 Dose: 2,400 mg Metoclopramide HCl (Metoclopramide 5 Mg/Ml 2 Ml Vial) 10 mg IVP Q6HR [facility] Last Admin: 06/21/23 12:18 Dose: 10 mg Metoprolol Succinate (Metoprolol Succinate (Er) 100 Mg Tab.Er.24h) 100 mg PO DAILY [facility] Stop: 07/16/23 09:01 Last Admin: 06/21/23 10:46 Dose: 100 mg Multivitamins (Multivitamins, Thera 1 Each Tab) 1 each PO DAILY [facility] Stop: 07/16/23 09:01 Last Admin: 06/21/23 10:44 Dose: 1 each Ondansetron HCl (Ondansetron 4 Mg/2 Ml Vial) 4 mg IVP Q8HR PRN PRN Reason: Nausea And Vomiting Stop: 07/15/23 16:40 Last Admin: 06/20/23 05:35 Dose: 4 mg Pantoprazole Sodium (Pantoprazole 40 Mg Tablet) 40 mg PO AC-BRKFST [facility] Stop: 07/16/23 07:31 Last Admin: 06/21/23 05:49 Dose: 40 mg Senna/Docusate Sodium (Sennosides-Docusate Sodium 1 Each Tab) 2 each PO HS [facility] Last Admin: 06/20/23 20:23 Dose: 2 each Tamsulosin HCl (Tamsulosin 0.4 Mg Cap.Er.24h) 0.4 mg PO PC-BRKFST [facility] Last Admin: 06/21/23 10:41 Dose: 0.4 mg 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 Non-smoker. Alcohol occasionally. Physical examination: VITAL SIGNS: 97.7, 89, 20, 137/64, 93% room air GENERAL: Sitting up in the chair. A bit uncomfortable EYES: Pupils equal. Conjunctiva caroline l. HEENT: External appearance of nose and ears normal, oral cavity grossly normal. NG tube to suction NECK: JVD not raised; masses not palpable. HEART: First and second heart sounds are normal; no edema. LUNGS: Respiratory rate normal; clear to auscultation. ABDOMEN: Soft, distended. Sluggish bowel sounds nontender, liver spleen not palpable, no masses palpable. PSYCH: Alert and oriented x3; mood and affect a bit anxious. MUSCULOSKELETAL:No Clubbing/cyanosis;muscles-grossly intact. Dressing over the incision site INVESTIGATIONS, reviewed in the clinical context: June 20: Sodium 134 potassium 3.7 creatinine 0.82 June 16, 2023: White count 14.2 hemoglobin 12.5 platelets 227 potassium 3.8 creatinine 0.9 Assessment plan: -Severe spinal stenosis L3-4 L4-5, degenerative disc disease L3-4 L4-5, disc herniation L3-4 L4-5, neurogenic claudication, lower extremity radiculopathy, lower extremity weakness, facet arthrosis, degenerative scoliosis Laminectomy bilateral decompression discectomy etc. with Dr. Melendez on June 15 Pain control. Activity as tolerated. -Acute small bowel ileus. Postop. Precipitated by decreased activity and pain medications: Not improving NPO. Continue NG tube to low intermittent suction. Continue. Oral medications. Surgery following -Leukocytosis, reactive. Currently no obvious evidence of infection -Essential hypertension Amlodipine 10 mg a day. Toprol XL 100 mg a day. Vasotec 20 mg twice daily -Muscle spasms -Hyperlipidemia Crestor 40 mg nightly -Bladder outflow obstruction with intermittent decreased urine output. Patient had to have straight catheterization x 2. Likely BPH. Flomax 0.4 mg started today. Try DC Silva in the morning. -GERD PPI -Obstructive sleep apnea Pending CPAP -Obesity BMI 33.9 Weight loss measures NG tube to suction. Discussed with patient. Thank you Dr. Melendez - Past Medical History Past Medical History: Deep Vein Thrombosis (DVT), GERD/Reflux, Hyperlipidemia, Hypertension, Sleep Apnea/CPAP/BIPAP Additional Past Medical History / Comment(s): DVT in lungs when he had COVID, "I've been told I snore a lot." "I'm going to have testing for it after my back surgery.", numbness to bi lat legs and feet. History of Any Multi-Drug Resistant Organisms: None Reported Past Surgical History: Hernia Repair, Orthopedic Surgery, Tonsillectomy Additional Past Surgical History / Comment(s): Umbilical hernia repair, Rt meniscus surgery, colonoscopy. Past Anesthesia/Blood Transfusion Reactions: Previous Problems w/ Anesthesia Additional Past Anesthesia/Blood Transfusion Reaction / Comm: "I was slow to wake up." Past Psychological History: No Psychological Hx Reported Smoking Status: Never smoker Past Alcohol Use History: Occasional Past Drug Use History: Marijuana Additional Drug Use History / Comment(s): "I smoke Marijuana 2-3 times a year." Pt instructed to not use Marijuana 24 hours prior to surgery.
--- NOTE | 2023-06-21 16:02 | P.PN ---
Subjective Progress Note Date: 06/21/23 CHIEF COMPLAINT: Ileus HISTORY OF PRESENT ILLNESS: Patient is sitting up bedside chair. He remains distended. NG tube output 500 mL today. 1000 mL output through the night. Patient did have a small bowel movement yesterday. He is having flatus. Ambulated in the hallway. Afebrile. Abdominal x-ray NG tube terminating in the esophagus. Gaseous dilation of multiple loops of bowel within the abdomen related to ileus and/or obstruction. Findings not significantly changed from 06/19/2023. NG tube was advanced per patient. PHYSICAL EXAM: VITAL SIGNS: Reviewed. GENERAL: Well-developed in no acute distress. ABDOMEN: Distended. Tympanic. mild Diffuse tenderness. NEUROLOGIC: Alert and oriented. Cranial nerves II through XII grossly intact. ASSESSMENT: 1. Ileus likely secondary to recent spinal surgery PLAN: -Continue NG tube for decompression -Keep patient n.p.o. -Continue Reglan 10 mg IV every 6 -Continue Dulcolax suppository daily -Encourage patient to increase activity level Physician Concrete Pipe Plant Supervisor note has been reviewed by physician. Signing provider agrees with the documented findings, assessment, and plan of care. I have personally seen and examined the patient, reviewed the PREMIUM CANCELLATION CLERK /PAs history, exam and MDM and agree with the assessment and plan as written. Based on total visit time, I have performed more than 50% of the visit. As above: Patient feels better today. Somewhat less bloated. No significant pain currently. He is passing gas today he says a lots of it. NG tube not quite far enough on today's x-ray. Still with dilated colon on this morning's x-ray. Spoke with nursing staff. They will advance an NG tube. Continue n.p.o. Objective - Vital Signs Vital signs: Vital Signs Temp 97.7 F 06/21/23 07:53 Pulse 89 06/21/23 07:53 Resp 20 06/21/23 07:53 BP 137/64 06/21/23 07:53 Pulse Ox 93 L 06/21/23 07:53 FiO2 Intake & Output 06/20/23 06/21/23 06/21/23 18:59 06:59 18:59 Output Total 400 1500 425 Balance -400 -1500 -425 Output: Gastric Drainage 1000 Urine 400 500 425 Other: Voiding Method Indwelling Catheter Indwelling Catheter Indwelling Catheter # Bowel Movements 1 - Labs CBC & Chem 7: 06/16/23 07:18 06/20/23 05:50
--- NOTE | 2023-06-21 18:07 | P.GSCN ---
History of Present Illness Consult date: 06/21/23 Reason for Consult: Postoperative urinary retention Requesting physician: Paola Melendez History of present illness: The patient is a 62-year-old white male who underwent a lumbar laminectomy and bilateral decompression with fusion on June 15, 2023. He now has an NG tube and a Silva catheter for a postoperative paralytic ileus and urinary retention, respectively. He has an unremarkable urologic history. His only preoperative voiding symptom was occasional hesitancy. His PSA levels are checked annually and have been normal. Review of Systems - Genitourinary Reports as per HPI Past Medical History Past Medical History: Deep Vein Thrombosis (DVT), GERD/Reflux, Hyperlipidemia, Hypertension, Sleep Apnea/CPAP/BIPAP Additional Past Medical History / Comment(s): DVT in lungs when he had COVID, "I've been told I snore a lot." "I'm going to have testing for it after my back surgery.", numbness to bi lat legs and feet. History of Any Multi-Drug Resistant Organisms: None Reported Past Surgical History: Hernia Repair, Orthopedic Surgery, Tonsillectomy Additional Past Surgical History / Comment(s): Umbilical hernia repair, Rt meniscus surgery, colonoscopy. Past Anesthesia/Blood Transfusion Reactions: Previous Problems w/ Anesthesia Additional Past Anesthesia/Blood Transfusion Reaction / Comm: "I was slow to wake up." Past Psychological History: No Psychological Hx Reported Smoking Status: Never smoker Past Alcohol Use History: Occasional Past Drug Use History: Marijuana Additional Drug Use History / Comment(s): "I smoke Marijuana 2-3 times a year." Pt instructed to not use Marijuana 24 hours prior to surgery. - Past Family History Father Family Medical History: Cancer Additional Family Medical History / Comment(s): Esophageal and pancreas Medications and Allergies Home Medications Medication Instructions Recorded Confirmed Type Aspirin 81 mg PO DAILY 06/09/23 06/15/23 History Calcium Phos/D3/Magnesium/Zinc 1 each PO DAILY 06/09/23 06/15/23 History [Klmlewp-Ftl-Axhk-Vitamin D3] Enalapril Maleate [Vasotec] 20 mg PO BID 06/09/23 06/15/23 History Fenofibrate 160 mg PO DAILY 06/09/23 06/15/23 History Fluticasone Nasal [place] [Flonase 2 spray EA NOSTRIL DAILY 06/09/23 06/15/23 Hist ory Nasal [place]] Ibuprofen [Motrin] 800 mg PO Q6H PRN 06/09/23 06/15/23 History Metoprolol Succinate (ER) [Toprol 100 mg PO DAILY 06/09/23 06/15/23 History Xl] Multivitamins, Thera [Multivitamin 1 tab PO DAILY 06/09/23 06/15/23 History (formulary)] Omeprazole [PriLOSEC] 20 mg PO AC-BRKFST 06/09/23 06/15/23 History Rosuvastatin Calcium [Crestor] 40 mg PO HS 06/09/23 06/15/23 History Sildenafil Citrate 100 mg PO DIRECTED PRN 06/09/23 06/15/23 History amLODIPine [Norvasc] 10 mg PO DAILY 06/09/23 06/15/23 History Cyclobenzaprine [Flexeril] 10 mg PO TID PRN #60 tab 06/17/23 Rx HYDROcodone/APAP 5-325MG [[place] 5] 1 each PO Q4HR PRN #42 tab 06/17/23 Rx Sennosides-Docusate Sodium 1 tab PO BID PRN #60 tablet 06/17/23 Rx [Senokot-S] Sennosides-Docusate Sodium 1 tab PO BID PRN #60 tablet 06/17/23 Rx [Senokot-S] Allergies Allergy/AdvReac Type Severity Reaction Status Date / Time acetaminophen Allergy Nausea Verified 06/15/23 11:11 [From Darvocet-N] propoxyphene Allergy Nausea Verified 06/15/23 11:11 [From Darvocet-N] Surgical - Exam Vital Signs Temp Pulse Resp BP Pulse Ox 97.3 F L 99 16 152/78 97 06/15/23 11:07 06/15/23 11:07 06/15/23 11:07 06/15/23 11:07 06/15/23 11:07 - General well developed, well nourished, no distress - Respiratory normal respiratory effort - Genitourinary normal penis with no external lesions, testicles non-tender - Rectum Rectum: normal sphincter tone, no masses, other (Prostate mildly enlarged and smooth) - Psychiatric oriented to time, oriented to person, oriented to place, speech is normal, memory intact Results - Labs 06/16/23 07:18 06/20/23 05:50 Assessment and Plan (1) Retention of urine, unspecified Current Visit: Yes Status: Acute Code(s): R33.9 - RETENTION OF URINE, UNSPECIFIED SNOMED Code(s): 682024584 Plan: I reassured the patient that long-term urinary retention is not a complication of a lumbar spinal fusion. The causes of his urinary retention are multifactorial, likely a combination of anesthesia, analgesics, pain, and paralytic ileus. I would suggest that the Silva catheter remain in place until the ileus has resolved. The catheter may be then be removed for a voiding trial. I would suggest that he continue to receive tamsulosin until the retention has resolved. Time with Patient: Greater than 30
[2023-06-22 06:57] LABS: Basophils # (A) 0.1 k/uL (0-0.2); Basophils % (A) 1 %; Eosinophils # (A) 0.4 k/uL (0-0.7); Eosinophils % (A) 4 %; HCT 34.7 % (39.0-53.0); HGB 11.5 gm/dL (13.0-17.5); Lymphocytes # (A) 1.6 k/uL (1.0-4.8); Lymphocytes % (A) 18 %; MCH 29.2 pg (25.0-35.0); MCHC 33.1 g/dL (31.0-37.0); MCV 88.2 fL (80.0-100.0); Mean Platelet Volume 7.5; Monocytes % (A) 11 %; Neutrophils # (A) 5.7 k/uL (1.3-7.7); Neutrophils % (A) 63 %; Platelet Count 373 k/uL (150-450); RBC 3.94 m/uL (4.30-5.90); RDW 13.7 % (11.5-15.5); WBC 8.9 k/uL (3.8-10.6)
[2023-06-22 07:35] LABS: African American GFR (CKD) 83 (>60 ml/min/1.73 sqM); Anion Gap 5 mmol/L; Blood Urea Nitrogen 44 mg/dL (9-20); Calcium 8.3 mg/dL (8.4-10.2); Carbon Dioxide 27 mmol/L (22-30); Chloride 105 mmol/L (98-107); Glucose 119 mg/dL (74-99); Non-African American GFR(CKD) 72 (>60 ml/min/1.73 sqM); Potassium 3.8 mmol/L (3.5-5.1); Sodium 137 mmol/L (137-145)
--- NOTE | 2023-06-22 14:00 | P.PN ---
Progress Note - Text Progress Note Date: 06/22/23 - Chief Complaint Lumbar surgery - History of Present Illness This is a pleasant 62-year-old patient who follows with Dr. Tessa Lentz. Chronic stable medical conditions include GERD, hypertension, hyperlipidemia, obstructive sleep apnea pending CPAP, and a prior history of DVT with COVID. Patient had chronic low back pain with radiation down both legs. Symptoms had not been controlled conservatively. Patient has severe spinal stenosis with radiculopathy and disc herniation. Patient with surgical intervention yesterday by Dr. Melendez. Today sitting up in a chair. Did take a few steps in the room. Pain is present. No nausea vomiting. Some lightheaded. Ate some breakfast this morning. He did use a walker today. No bowel movement. Silva catheter June 17: Patient did walk with a walker today. Pain present. Silva catheter was removed. No bowel movement. Did tolerate diet. June 18: Patient is having some trouble with making urine. Had to be straight catheterized x 2. No prior problem. Given patient's age likely BPH. Flomax been added. No bowel movement. Pain is better. Did walk a bit in the hallway. present. June 19: Rather distended abdomen. Has had no bowel movement with lactulose/Dulcolax. Also did not respond to soapsuds enema. Nausea. Clinical suspicion for ileus is high.. I ordered abdominal x-ray. Small bowel ileus confirmed. NG tube to intermittent suction with medications. Otherwise n.p.o. consult general surgery. IV fluids June 20: NG tube. To suction. Had 1100 cc output from gastric drainage. Also has a Silva catheter. Trial DC Silva in the morning. Clinically ileus persist. Chewing gum ordered. No flatus. No abdominal pain June 21: NG tube. Will intermittent suction. Good output. Very slight decrease in abdominal distention. No flatus. Taking his medications. Abdominal x-ray today shows gaseous dilatation of multiple loops of bowel within the abdomen. No Tumma change from previous x-ray. June 22: NG tube to suction remains in place. Has passed some flatus. Some decrease in abdominal distention. Did walk a bit. Silva catheter discontinued this morning. Had not voided till my rounds. Discussed with patient at the bedside. No back pain. Active Medications Hydrocodone Bitart/Acetaminophen (Hydrocodone/Apap 5-325mg 1 Each Tab) 1 each PO Q4HR PRN PRN Reason: Pain Stop: 07/15/23 16:39 Last Admin: 06/22/23 10:48 Dose: 1 each Amlodipine Besylate (Amlodipine 10 Mg Tab) 10 mg PO DAILY [facility] Stop: 07/16/23 09:01 Last Admin: 06/22/23 08:08 Dose: 10 mg Aspirin (Aspirin 81 Mg) 81 mg PO DAILY [facility] Stop: 07/16/23 09:01 Last Admin: 06/22/23 08:08 Dose: 81 mg Atorvastatin Calcium (Atorvastatin 80 Mg Tab) 80 mg PO HS [facility] Stop: 07/15/23 21:01 Last Admin: 06/21/23 20:30 Dose: 80 mg Benzocaine/Menthol (Benzocaine/Menthol Lozeng 1 Each Lozenge) 1 each MUCOUS MEM Q4HR PRN PRN Reason: Sore Throat Stop: 07/15/23 16:39 Bisacodyl (Bisacodyl 10 Mg Supp) 10 mg RECTAL DAILY [facility] Last Admin: 06/22/23 08:09 Dose: 10 mg Cyclobenzaprine HCl (Cyclobenzaprine 10 Mg Tab) 10 mg PO TID PRN PRN Reason: Muscle Spasm Stop: 07/15/23 16:40 Last Admin: 06/19/23 20:46 Dose: 10 mg Fenofibrate (Fenofibrate 160 Mg Tab) 160 mg PO DAILY [facility] Stop: 07/16/23 09:01 Last Admin: 06/22/23 08:08 Dose: 160 mg Fluticasone Propionate (Fluticasone 50mcg/[place] Nasal 16gm) 2 spray EA NOSTRIL DAILY [facility] Stop: 07/16/23 09:01 Last Admin: 06/22/23 08:09 Dose: 2 spray Lactated Ringer's (Lactated Ringers) 1,000 mls @ 125 mls/hr IV .Q8H [facility] Last Admin: 06/22/23 06:23 Dose: 125 mls/hr Lisinopril (Lisinopril 20 Mg Tab) 40 mg PO BID [facility] Stop: 07/15/23 21:01 Last Admin: 06/22/23 08:08 Dose: 40 mg Magnesium Hydroxide (Magnesium Hydroxide 2,400 Mg/30 Ml Cup) 2,400 mg PO DAILY PRN PRN Reason: Constipation Stop: 07/15/23 16:40 Last Admin: 06/19/23 06:37 Dose: 2,400 mg Metoclopramide HCl (Metoclopramide 5 Mg/Ml 2 Ml Vial) 10 mg IVP Q6HR [facility] Last Admin: 06/22/23 12:10 Dose: 10 mg Metoprolol Succinate (Metoprolol Succinate (Er) 100 Mg Tab.Er.24h) 100 mg PO DAILY [facility] Stop: 07/16/23 09:01 Last Admin: 06/22/23 08:09 Dose: 100 mg Multivitamins (Multivitamins, Thera 1 Each Tab) 1 each PO DAILY [facility] Stop: 07/16/23 09:01 Last Admin: 06/22/23 08:08 Dose: 1 each Ondansetron HCl (Ondansetron 4 Mg/2 Ml Vial) 4 mg IVP Q8HR PRN PRN Reason: Nausea And Vomiting Stop: 07/15/23 16:40 Last Admin: 06/20/23 05:35 Dose: 4 mg Pantoprazole Sodium (Pantoprazole 40 Mg Tablet) 40 mg PO -BRKFST [facility] Stop: 07/16/23 07:31 Last Admin: 06/22/23 06:23 Dose: 40 mg Senna/Docusate Sodium (Sennosides-Docusate Sodium 1 Each Tab) 2 each PO HS [facility] Last Admin: 06/21/23 20:30 Dose: 2 each Tamsulosin HCl (Tamsulosin 0.4 Mg Cap.Er.24h) 0.4 mg PO -BRKFST [facility] Last Admin: 06/22/23 08:08 Dose: 0.4 mg 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 Non-smoker. Alcohol occasionally. Physical examination: VITAL SIGNS: 98.5, 18, 19, 137/75, 95% room air GENERAL: Sitting up in the chair. EYES: Pupils equal. Conjunctiva caroline l. HEENT: External appearance of nose and ears normal, oral cavity grossly normal. NG tube to suction NECK: JVD not raised; masses not palpable. HEART: First and second heart sounds are normal; no edema. LUNGS: Respiratory rate normal; clear to auscultation. ABDOMEN: Soft, less distended. Sluggish bowel sounds nontender, liver spleen not palpable, no masses palpable. PSYCH: Alert and oriented x3; mood and affect a bit anxious. MUSCULOSKELETAL:No Clubbing/cyanosis;muscles-grossly intact. Dressing over the incision site INVESTIGATIONS, reviewed in the clinical context: June 22: White count 8.9 hemoglobin 11.5 potassium 3.8 creatinine 1.11 June 20: Sodium 134 potassium 3.7 creatinine 0.82 June 16, 2023: White count 14.2 hemoglobin 12.5 platelets 227 potassium 3.8 creatinine 0.9 Assessment plan: -Severe spinal stenosis L3-4 L4-5, degenerative disc disease L3-4 L4-5, disc herniation L3-4 L4-5, neurogenic claudication, lower extremity radiculopathy, lower extremity weakness, facet arthrosis, degenerative scoliosis: Pain controlled Laminectomy bilateral decompression discectomy etc. with Dr. Melendez on June 15 Activity as tolerated. -Acute small bowel ileus. Postop. Precipitated by decreased activity and pain medications: Slow improvement NPO. Continue NG tube to low intermittent suction. Continue. Oral medications. Some decrease in distention. Did pass flatus. Surgery following -Leukocytosis, reactive. Currently no obvious evidence of infection -Essential hypertension Amlodipine 10 mg a day. Toprol XL 100 mg a day. Vasotec 20 mg twice daily -Muscle spasms -Hyperlipidemia Crestor 40 mg nightly -Bladder outflow obstruction with intermittent decreased urine output. Patient had to have straight catheterization x 2. Likely BPH. Flomax 0.4 mg started today. Try DC Silva in the morning. -GERD PPI -Obstructive sleep apnea Pending CPAP -Obesity BMI 33.9 Weight loss measures NG tube to suction. Activity as tolerated. Discussed with patient and . Thank you Dr. Melendez - Past Medical History Past Medical History: Deep Vein Thrombosis (DVT), GERD/Reflux, Hyperlipidemia, Hypertension, Sleep Apnea/CPAP/BIPAP Additional Past Medical History / Comment(s): DVT in lungs when he had COVID, "I've been told I snore a lot." "I'm going to have testing for it after my back surgery.", numbness to bi lat legs and feet. History of Any Multi-Drug Resistant Organisms: None Reported Past Surgical History: Hernia Repair, Orthopedic Surgery, Tonsillectomy Additional Past Surgical History / Comment(s): Umbilical hernia repair, Rt meniscus surgery, colonoscopy. Past Anesthesia/Blood Transfusion Reactions: Previous Problems w/ Anesthesia Additional Past Anesthesia/Blood Transfusion Reaction / Comm: "I was slow to wake up." Past Psychological History: No Psychological Hx Reported Smoking Status: Never smoker Past Alcohol Use History: Occasional Past Drug Use History: Marijuana Additional Drug Use History / Comment(s): "I smoke Marijuana 2-3 times a year." Pt instructed to not use Marijuana 24 hours prior to surgery.
--- NOTE | 2023-06-22 15:21 | P.PN ---
Progress Note - Text Progress Note Date: 06/22/23 Orthopedic Spine History of present illness: Patient is a pleasant 62-year-old male who is seen and examined at the bedside following posterior lateral decompression and fusion performed to last Tuesday. Since being seen and examined yesterday, his symptoms have continued to improve overall regards to his lumbar spine. His low back pain and right lower extremity radiculopathy are adequately controlled. He does not currently have any complaints in this regard. His pain has been adequately controlled with medication. Most significantly, he has significant constipation with abdominal pain. NG tube was placed h continues to remain intact. Seen by general surgery who is currently plan to continue with conservative treatment. He has been passing gas and was able to have a small bowel movement. Currently plan to keep the NG tube intact with repeat imaging and evaluation in the morning. He has not been cleared for discharge from a general surgery standpoint. Will continue with recommendations per general surgery. His Silva catheter was also previously removed but he has been unable to urinate independently. His Silva catheter was reinserted. Seen by urology yesterday. The Silva catheter was discontinued today. He did have a voiding trial. He was able to void independently. He does utilize an incentive spirometer. He is requiring assistance with a walker to aid in ambulation. His ambulation is slow. He is working with physical therapy. He does have a walker for home use. Currently does not complain of fever or chills. Patient is being seen and examined by medicine for his multiple other medical diagnoses. Physical Exam Lumbar Fusion: Status post surgical day number 7 Patient is awake, alert, and oriented 3 Vital signs stable Good chest excursion with deep inspiration and expiration Abdomen appears distended NG tube intact Dorsiflexion, plantarflexion, and extensor hallucis longus positive sustained bilaterally No signs or symptoms of DVT; no calf pain; pneumatic cuffs intact bilateral lower extremities Silva catheter been discontinued No active drainage from the surgical sites; surgical incision sites remain clean, dry, and intact No erythema, significant bruising, or obvious sign of infection over the surgical sites Assessment: Status post L3-4 and L4-5 minimally invasive posterior lateral decompression and fusion with transforaminal lumbar interbody fusion Low back pain L3-4 and L4-5 severe spinal stenosis L3-4 and L4-5 degenerative disc disease Neurogenic claudication Lower extremity radiculopathy Lumbar facet arthrosis Degenerative scoliosis L3-4 and L4-5 herniated nucleus pulposus Lower extremity radiculopathy Lumbar muscle spasm Constipation Abdominal pain NG tube intact Ileus Urinary retention; catheter recently discontinued and patient was able to void independently Hyperlipidemia Essential hypertension Obstructive sleep apnea Obesity Plan: We will continue with our plan as set forth yesterday. We will continue to follow the patient closely; patient continues to have difficulty with mobilization and ambulation postoperatively. He has been working with physical therapy and is progressing. Making good progress in regards to his lumbar spine. He has been utilizing a walker. He had more difficulty from an abdomen standpoint. I do not feel the patient is ready for discharge home. Patient will continue to remain in the hospital until his symptoms improve and his pain is better controlled. We will plan to have the patient be admitted to in patient status during his admission. Over the weekend he is also began to have significant other medical difficulties including constipation and urinary retention. NG tube has been placed. Being seen and examined by general surgery who is managing his abdomen. NG tube is currently remaining intact with plans for further x-ray imaging and further evaluation with general surgery tomorrow morning. He has not been clear for discharge from a general surgery standpoint. He was experiencing urinary retention and Silva catheter was reinserted. This catheter has been discontinued. He was able to void independently today. Did discuss he will need to be cleared by general surgery and medicine prior to discharge. 1. Ambulate as tolerated; work with Physical Therapy to increase mobilization 2. Continue pain control with IV and oral medications; currently, we will try to limit the patient's narcotic medications due to his constipation MAPS has been previously reviewed. An "Opiod Start Talking" Form has been signed and placed in the patient's chart. A prescription has been written for hydrocodone 5 mg / 325 mg, 1 tab, every 4 hours, as needed for acute pain, dispense #42. Prescriptions were originally sent to [facility] located within [facility] but these medications were canceled over the weekend with medication prescription sent to his local pharmacy. Patient was also sent prescriptions for cyclobenzaprine 10 mg, 1 tab, 3 times daily, as needed for muscle spasm, dispense #60 and Senokot-S, 1 tab, twice daily, as needed for constipation, dispense #60. 3. Dressings have been removed. Patient may shower with dressings intact 4. Medical management can continue to manage patient for patient's other medical diagnoses 5. Patient continue to be seen and examined by Dr. Moran in general surgery for stent of his abdomen 6. We will continue to follow the patient closely; patient will need clearance by multiple medical providers prior to discharge home 7. Patient can follow-up with Pedro Dia PA-C or Dr. Ben Melendez at [facility] in 2-3 weeks following discharge Patient is seen and examined at bedside. He had significant improvement. Feels his back and his legs are doing well. He feels his ambulation is better. He is voiding on his own. His NG tube is still intact but he is decompressing well. Medicine and surgery are following him with recommendations for when to appropriately advance his diet. Hopefully will continue to make steady progress over the next day or 2 and would be able to start a diet and to be discharged home. We will continue following closely.
--- NOTE | 2023-06-22 15:33 | P.PN ---
Subjective Progress Note Date: 06/22/23 CHIEF COMPLAINT: Ileus HISTORY OF PRESENT ILLNESS: Patient is sitting up bedside chair. Abdomen is less distended. He did have a small bowel movement small amount of flatus. He reports his pain is decreasing. NG tube output 1100 through the night. Afebrile obesity down to 8.9 PHYSICAL EXAM: VITAL SIGNS: Reviewed. GENERAL: Well-developed in no acute distress. ABDOMEN: Less distended. Tympanic. mild Diffuse tenderness. NEUROLOGIC: Alert and oriented. Cranial nerves II through XII grossly intact. ASSESSMENT: 1. Ileus likely secondary to recent spinal surgery PLAN: -Continue NG tube for decompression -Keep patient n.p.o. -Continue Reglan 10 mg IV every 6 -Continue Dulcolax suppository daily -Encourage patient to increase activity level Physician Stamping Die Maker note has been reviewed by physician. Signing provider agrees with the documented findings, assessment, and plan of care. Objective - Vital Signs Vital signs: Vital Signs Temp 98.5 F 06/22/23 07:00 Pulse 80 06/22/23 07:00 Resp 19 06/22/23 07:00 BP 137/75 06/22/23 07:00 Pulse Ox 95 06/22/23 07:00 FiO2 Intake & Output 06/21/23 06/22/23 06/22/23 18:59 06:59 18:59 Intake Total 1500 Output Total 1470 1200 375 Balance 30 -1200 -375 Intake: Intake, IV Titration 1500 Amount Lactated Ringers 1,000 ml 1500 @ 125 mls/hr IV .Q8H MANJEET Rx#:[id number] Output: Gastric Drainage 700 400 Urine 770 800 375 Other: Voiding Method Indwelling Catheter Indwelling Catheter Toilet Urinal # Bowel Movements 1 - Labs CBC & Chem 7: 06/22/23 06:17 06/22/23 06:17 Labs: Abnormal Lab Results - Last 24 Hours (Table) 06/22/23 06/22/23 Range/Units 06:17 06:17 RBC 3.94 L (4.30-5.90) m/uL Hgb 11.5 L (13.0-17.5) gm/dL Hct 34.7 L (39.0-53.0) % BUN 44 H (9-20) mg/dL Glucose 119 H (74-99) mg/dL Calcium 8.3 L (8.4-10.2) mg/dL
--- NOTE | 2023-06-23 08:36 | P.PN ---
Subjective Progress Note Date: 06/23/23 Principal diagnosis: Post-operative urinary retention The patient is a 62-year-old white male who developed postoperative urinary retention following a lumbar laminectomy and bilateral decompression with fusion on June 15, 2023. The Silva catheter is now out, and he states he is voiding without difficulty. Objective - Vital Signs Vital signs: Vital Signs Temp 98.3 F 06/23/23 07:20 Pulse 82 06/23/23 07:20 Resp 17 06/23/23 07:20 BP 147/75 06/23/23 07:20 Pulse Ox 96 06/23/23 07:20 FiO2 Intake & Output 06/22/23 06/23/23 06/23/23 18:59 06:59 18:59 Output Total 900 500 Balance -900 -500 Output: Gastric Drainage 200 500 Urine 700 Other: Voiding Method Toilet Urinal # Bowel Movements 1 2 - Constitutional General appearance: Present: average body habitus, cooperative, no acute di stress - Psychiatric Psychiatric: Present: A&O x's 3 - Labs CBC & Chem 7: 06/22/23 06:17 06/22/23 06:17 Assessment and Plan (1) Retention of urine, unspecified Current Visit: Yes Status: Acute Code(s): R33.9 - RETENTION OF URINE, UNSPECIFIED SNOMED Code(s): 178594007 Plan: Bladder scan will be utilized to check post-void residual. It appears that the urinary retention has resolved and I expect the post-void residual to be acceptably low. He is currently receiving tamsulosin, but if he is verified to be emptying his bladder and I do not feel that he will need to be discharged home on tamsulosin. Please notify me if I can be of any further assistance.
--- NOTE | 2023-06-23 09:18 | P.PN ---
Progress Note - Text Progress Note Date: 06/23/23 Postoperative day #8 Patient is seen and examined today at bedside. Patient feels that his back is doing well. He is increasing his ambulation nicely. He denies any new changes in his lower extremities. Pain is being controlled with medication. He is voiding freely. Urology note is appreciated. He still has an NG tube intact. Physical Exam Afebrile with stable vital signs Abdomen is distended but somewhat softer. His NG tube is intact. Chest has good excursion deep and space expiration The incision site is clean dry and intact there is lower back. No erythema there is no purulence. Extremities have not had neurologic change from prior to surgery. He is ambulating well in his room Calves and thighs were soft nontender without evidence of DVT. Assessment/Plan Postoperative day #8 status post minimally base of decompression fusion for his spinal stenosis with lower extreme radiculopathy Patient is progressing in terms of his low back and his lower extremities as expected from the surgery. We will continue to increase the patient's mobilization with therapy. Patient has had somewhat of a prolonged hospital stay due to his urinary retention and his ileus. The urinary retention seems to be resolved. I appreciate the urology input Patient's ileus seems to be slowly resolving. There is continue management through medicine and surgery. We will continue pain control with oral or IV medications. From an orthopedic standpoint the patient is okay to discharge once his ileus is resolved and he is cleared from his abdominal standpoint with surgery. They are managing his diet, NG tube and oral intake. We'll continue to follow patient closely.
[2023-06-23 13:03] VITALS: BMI 33.9
--- NOTE | 2023-06-23 13:40 | XR ---
EXAMINATION TYPE: XR abdomen 2V DATE OF EXAM: 06/23/2023 1:35 PM CLINICAL INDICATION:Male, 62 years old with history of abdominal distention; [facility] COMPARISON: 06/21/2023. TECHNIQUE: Two views of the abdomen were obtained. FINDINGS/IMPRESSION: 1. Gaseous distention of bowel in the upper midabdomen not significant change from 06/21/2023 given di fferences in technique. Correlate for ileus. 2. The nasogastric tube appears in the distal esophagus. Consider advancement of 8.7 cm for placemen t. 3. Fixation hardware in the spine appears intact.
--- NOTE | 2023-06-23 17:27 | P.PN ---
Subjective Progress Note Date: 06/23/23 CHIEF COMPLAINT: Ileus HISTORY OF PRESENT ILLNESS: Patient sitting in chair. He did have a small bowel movement he is having flatus. He reports that his abdomen feels softer. Denies any nausea. NG tube output 200 to the night 500 this morning. Denies any abdominal pain. Afebrile PHYSICAL EXAM: VITAL SIGNS: Reviewed. GENERAL: Well-developed in no acute distress. ABDOMEN: Less distended and softer. Tympanic nontender NEUROLOGIC: Alert and oriented. Cranial nerves II through XII grossly intact. ASSESSMENT: 1. Ileus likely secondary to recent spinal surgery PLAN: -Continue NG tube for decompression -Abdominal x-ray ordered -Further recommendations forthcoming per surgeon --Continue Reglan 10 mg IV every 6 -Continue Dulcolax suppository daily -Encourage patient to increase activity level Physician Ladder Operator note has been reviewed by physician. Signing provider agrees with the documented findings, assessment, and plan of care. I have personally seen and examined the patient, reviewed the CLINIC SUPERVISOR /PAs history, exam and MDM and agree with the assessment and plan as written. Based on total visit time, I have performed more than 50% of the visit. As above: Patient feels better. Says his abdominal bloating is back to his normal size. Still passing flatus. No nausea. X-rays noted. Still some distention of the hepatic flexure region. Patient and I discussed options. Will discontinue nasogastric tube and begin clear liquids. Continue ambulation. Encourage gum chewing. Add lactulose. Objective - Vital Signs Vital signs: Vital Signs Temp 98.7 F 06/23/23 14:00 Pulse 80 06/23/23 14:00 Resp 17 06/23/23 14:00 BP 151/71 06/23/23 14:00 Pulse Ox 96 06/23/23 14:00 FiO2 Intake & Output 06/22/23 06/23/23 06/23/23 18:59 06:59 18:59 Output Total 900 500 Balance -900 -500 Weight 101.1 kg Output: Gastric Drainage 200 500 Urine 700 Other: Voiding Method Toilet Toilet Urinal Urinal # Bowel Movements 1 2 - Labs CBC & Chem 7: 06/22/23 06:17 06/22/23 06:17
[2023-06-23] MEDS: LACTULOSE 20 GM/30 ML CUP PO SCH (18:37)
--- NOTE | 2023-06-23 20:16 | P.PN ---
Progress Note - Text Progress Note Date: 06/23/23 - Chief Complaint Lumbar surgery - History of Present Illness This is a pleasant 62-year-old patient who follows with Dr. Tessa Lentz. Chronic stable medical conditions include GERD, hypertension, hyperlipidemia, obstructive sleep apnea pending CPAP, and a prior history of DVT with COVID. Patient had chronic low back pain with radiation down both legs. Symptoms had not been controlled conservatively. Patient has severe spinal stenosis with radiculopathy and disc herniation. Patient with surgical intervention yesterday by Dr. Melendez. Today sitting up in a chair. Did take a few steps in the room. Pain is present. No nausea vomiting. Some lightheaded. Ate some breakfast this morning. He did use a walker today. No bowel movement. Silva catheter June 17: Patient did walk with a walker today. Pain present. Silva catheter was removed. No bowel movement. Did tolerate diet. June 18: Patient is having some trouble with making urine. Had to be straight catheterized x 2. No prior problem. Given patient's age likely BPH. Flomax been added. No bowel movement. Pain is better. Did walk a bit in the hallway. present. June 19: Rather distended abdomen. Has had no bowel movement with lactulose/Dulcolax. Also did not respond to soapsuds enema. Nausea. Clinical suspicion for ileus is high.. I ordered abdominal x-ray. Small bowel ileus confirmed. NG tube to intermittent suction with medications. Otherwise n.p.o. consult general surgery. IV fluids June 20: NG tube. To suction. Had 1100 cc output from gastric drainage. Also has a Silva catheter. Trial DC Silva in the morning. Clinically ileus persist. Chewing gum ordered. No flatus. No abdominal pain June 21: NG tube. Will intermittent suction. Good output. Very slight decrease in abdominal distention. No flatus. Taking his medications. Abdominal x-ray today shows gaseous dilatation of multiple loops of bowel within the abdomen. No Tumma change from previous x-ray. June 22: NG tube to suction remains in place. Has passed some flatus. Some decrease in abdominal distention. Did walk a bit. Silva catheter discontinued this morning. Had not voided till my rounds. Discussed with patient at the bedside. No back pain. June 23: NG tube remains in place. Has had a small BM. Abdomen less distended. No nausea vomiting. Silva catheter was discontinued yesterday. Making good urine. Per surgery patient started on clear liquids this evening. X-ray showed gaseous distention of the bowels. Active Medications Hydrocodone Bitart/Acetaminophen (Hydrocodone/Apap 5-325mg 1 Each Tab) 1 each PO Q4HR PRN PRN Reason: Pain Stop: 07/15/23 16:39 Last Admin: 06/23/23 12:50 Dose: 1 each Amlodipine Besylate (Amlodipine 10 Mg Tab) 10 mg PO DAILY [facility] Stop: 07/16/23 09:01 Last Admin: 06/23/23 08:33 Dose: 10 mg Aspirin (Aspirin 81 Mg) 81 mg PO DAILY [facility] Stop: 07/16/23 09:01 Last Admin: 06/23/23 08:33 Dose: 81 mg Atorvastatin Calcium (Atorvastatin 80 Mg Tab) 80 mg PO HS [facility] Stop: 07/15/23 21:01 Last Admin: 06/22/23 20:43 Dose: 80 mg Benzocaine/Menthol (Benzocaine/Menthol Lozeng 1 Each Lozenge) 1 each MUCOUS MEM Q4HR PRN PRN Reason: Sore Throat Stop: 07/15/23 16:39 Bisacodyl (Bisacodyl 10 Mg Supp) 10 mg RECTAL DAILY [facility] Last Admin: 06/23/23 09:15 Dose: Not Given Cyclobenzaprine HCl (Cyclobenzaprine 10 Mg Tab) 10 mg PO TID PRN PRN Reason: Muscle Spasm Stop: 07/15/23 16:40 Last Admin: 06/19/23 20:46 Dose: 10 mg Fenofibrate (Fenofibrate 160 Mg Tab) 160 mg PO DAILY [facility] Stop: 07/16/23 09:01 Last Admin: 06/23/23 08:33 Dose: 160 mg Fluticasone Propionate (Fluticasone 50mcg/Mcgraws Nasal 16gm) 2 spray EA NOSTRIL DAILY [facility] Stop: 07/16/23 09:01 Last Admin: 06/23/23 12:20 Dose: Not Given Lactated Ringer's (Lactated Ringers) 1,000 mls @ 125 mls/hr IV .Q8H [facility] Last Admin: 06/23/23 12:35 Dose: 125 mls/hr Lactulose (Lactulose 20 Gm/30 Ml Cup) 20 gm PO DAILY [facility] Last Admin: 06/23/23 18:39 Dose: 20 gm Lisinopril (Lisinopril 20 Mg Tab) 40 mg PO BID [facility] Stop: 07/15/23 21:01 Last Admin: 06/23/23 08:33 Dose: 40 mg Magnesium Hydroxide (Magnesium Hydroxide 2,400 Mg/30 Ml Cup) 2,400 mg PO DAILY PRN PRN Reason: Constipation Stop: 07/15/23 16:40 Last Admin: 06/19/23 06:37 Dose: 2,400 mg Metoclopramide HCl (Metoclopramide 5 Mg/Ml 2 Ml Vial) 10 mg IVP Q6HR [facility] Last Admin: 06/23/23 18:30 Dose: Not Given Metoprolol Succinate (Metoprolol Succinate (Er) 100 Mg Tab.Er.24h) 100 mg PO DAILY [facility] Stop: 07/16/23 09:01 Last Admin: 06/23/23 08:33 Dose: 100 mg Multivitamins (Multivitamins, Thera 1 Each Tab) 1 each PO DAILY [facility] Stop: 07/16/23 09:01 Last Admin: 06/23/23 08:33 Dose: 1 each Ondansetron HCl (Ondansetron 4 Mg/2 Ml Vial) 4 mg IVP Q8HR PRN PRN Reason: Nausea And Vomiting Stop: 07/15/23 16:40 Last Admin: 06/20/23 05:35 Dose: 4 mg Pantoprazole Sodium (Pantoprazole 40 Mg Tablet) 40 mg PO AC-BRKFST [facility] Stop: 07/16/23 07:31 Last Admin: 06/23/23 08:33 Dose: 40 mg Senna/Docusate Sodium (Sennosides-Docusate Sodium 1 Each Tab) 2 each PO HS [facility] Last Admin: 06/22/23 20:42 Dose: 2 each Tamsulosin HCl (Tamsulosin 0.4 Mg Cap.Er.24h) 0.4 mg PO PC-BRKFST [facility] Last Admin: 06/23/23 08:33 Dose: 0.4 mg 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 Non-smoker. Alcohol occasionally. Physical examination: VITAL SIGNS: 98.7, 80, 17, 151 x 71, 96% room air GENERAL: Sitting up in the chair. Looking better EYES: Pupils equal. Conjunctiva caroline l. HEENT: External appearance of nose and ears normal, oral cavity grossly normal. NG tube to suction NECK: JVD not raised; masses not palpable. HEART: First and second heart sounds are normal; no edema. LUNGS: Respiratory rate normal; clear to auscultation. ABDOMEN: Soft, less distended. Sluggish bowel sounds nontender, liver spleen not palpable, no masses palpable. PSYCH: Alert and oriented x3; mood and affect a bit anxious. MUSCULOSKELETAL:No Clubbing/cyanosis;muscles-grossly intact. Dressing over the incision site INVESTIGATIONS, reviewed in the clinical context: June 22: White count 8.9 hemoglobin 11.5 potassium 3.8 creatinine 1.11 June 20: Sodium 134 potassium 3.7 creatinine 0.82 June 16, 2023: White count 14.2 hemoglobin 12.5 platelets 227 potassium 3.8 creatinine 0.9 Assessment plan: -Severe spinal stenosis L3-4 L4-5, degenerative disc disease L3-4 L4-5, disc herniation L3-4 L4-5, neurogenic claudication, lower extremity radiculopathy, lower extremity weakness, facet arthrosis, degenerative scoliosis: Pain controlled Laminectomy bilateral decompression discectomy etc. with Dr. Melendez on June 15 Activity as tolerated. -Acute small bowel ileus. Postop. Precipitated by decreased activity and pain medications: Slow improvement NPO. Continue NG tube to low intermittent suction. Continue. Oral medications. Some decrease in distention. Did pass flatus. Surgery following -Leukocytosis, reactive. Currently no obvious evidence of infection -Essential hypertension Amlodipine 10 mg a day. Toprol XL 100 mg a day. Vasotec 20 mg twice daily -Muscle spasms -Hyperlipidemia Crestor 40 mg nightly -Bladder outflow obstruction with intermittent decreased urine output. Patient had to have straight catheterization x 2. Likely BPH. Flomax 0.4 mg started today. Try DC Silva in the morning. -GERD PPI -Obstructive sleep apnea Pending CPAP -Obesity BMI 33.9 Weight loss measures Clear liquids per surgery starting this evening. Thank you Dr. Melendez - Past Medical History Past Medical History: Deep Vein Thrombosis (DVT), GERD/Reflux, Hyperlipidemia, Hypertension, Sleep Apnea/CPAP/BIPAP Additional Past Medical History / Comment(s): DVT in lungs when he had COVID, "I've been told I snore a lot." "I'm going to have testing for it after my back surgery.", numbness to bi lat legs and feet. History of Any Multi-Drug Resistant Organisms: None Reported Past Surgical History: Hernia Repair, Orthopedic Surgery, Tonsillectomy Additional Past Surgical History / Comment(s): Umbilical hernia repair, Rt men iscus surgery, colonoscopy. Past Anesthesia/Blood Transfusion Reactions: Previous Problems w/ Anesthesia Additional Past Anesthesia/Blood Transfusion Reaction / Comm: "I was slow to wake up." Past Psychological History: No Psychological Hx Reported Smoking Status: Never smoker Past Alcohol Use History: Occasional Past Drug Use History: Marijuana Additional Drug Use History / Comment(s): "I smoke Marijuana 2-3 times a year." Pt instructed to not use Marijuana 24 hours prior to surgery.
[2023-06-23 20:40] VITALS: RESP 18
[2023-06-24 02:15] VITALS: PULSE 74
--- NOTE | 2023-06-24 08:02 | P.DS ---
Providers Date of admission: 06/16/23 17:16 Attending physician: Paola Melendez Consults: 06/16/23 10:05 Consult Physician Routine Consulting Provider: Saroj Camejo Consult Reason/Comments: Medical management Do you want consulting provider notified?: Yes 06/19/23 15:37 Consult Physician Routine Consulting Provider: Dami Moran Consult Reason/Comments: Ileus Do you want consulting provider notified?: Yes 06/21/23 08:29 Consult Physician Routine Consulting Provider: Bubba Lomax Consult Reason/Comments: Postoperative urinary retention Do you want consulting provider notified?: Yes Primary care physician: Nelli Roach [facility] Course: The patient presented on the day of admission as per their operative note. He presented for his minimally invasive decompression and fusion in his lumbar spine due to his severe spinal stenosis with lower extreme radiculopathy and underwent his procedure as per his operative note. He has been making progress in terms of his back and his ambulation. The patient's recovery has been slow due to development of some urinary retention and an ileus. Patient has been followed by medicine as well as with general surgery and urology in this regard. He is making good progress with each of these and is voiding on his own. He is having bowel movements though he says that this just liquid as he has not been eating over the past few days. He says his abdomen is back to normal for him. He is denying any nausea or vomiting or abdominal pain. Physical Exam The incision site is clean dry and intact. There is no erythema no drainage. There is no purulence no evidence of infection. Appears to be healing appropriately Abdomen soft and nontender. He has significant improvement in the abdominal distention. Chest has good excursion with deep inspiration and expiration. The patient has active and passive range of motion intact at the upper and lower extremities. There is no acute change in neurologic status. He has sustained dorsiflexion plantarflexion EHL intact Hospital Course Postoperative day #9 status post posterior minimally invasive lumbar decompression and fusion for his severe spinal stenosis lower extreme radiculopathy and weakness. Urinary retention resolved t Postoperative ileus resolving appropriately he patient has been making steady progress postoperatively at this point. They have completed the prophylactic antibiotics without any signs or symptoms of infection. In terms of his back he has been making adequate progress. He is ambulating in the hallways and his wound is healing well. He is controlling his pain well with oral medications. The patient's urinary retention has resolved. He is voiding freely without significant retention or residual. In terms of the patient's ileus this has been slow to resolve but the NG tube is now discontinued. He is tolerating clears adequately. He is hoping to advance his diet and potentially move forward with clearance for discharge home if he is okay with surgery medical service. The patient has been able to advance their diet to clears overnight, and is tolerating diet adequately. The pain was initially controlled with IV medications and is now controlled appropriately with oral medications. The patient has been able to increase their mobilization. The patient has progressed appropriately. I think they are in good stable condition for discharge today if they are clear with the surgery department in terms of his ileus. They will be sent home with appropriate prescriptions. I answered their questions to the best of my ability in a language that they can understand and they are agreeable with the plan. They will follow up as directed. Patient Condition at Discharge: Fair Plan - Discharge Summary Discharge Rx Participant: No New Discharge Prescriptions: New Sennosides-Docusate Sodium [Senokot-S] 1 tab PO BID PRN #60 tablet PRN Reason: Constipation Cyclobenzaprine [Flexeril] 10 mg PO TID PRN #60 tab PRN Reason: Muscle Spasm HYDROcodone/APAP 5-325MG [[place] 5] 1 each PO Q4HR PRN #42 tab PRN Reason: Pain Sennosides-Docusate Sodium [Senokot-S] 1 tab PO BID PRN #60 tablet PRN Reason: Constipation No Action Multivitamins, Thera [Multivitamin (formulary)] 1 tab PO DAILY Metoprolol Succinate (ER) [Toprol Xl] 100 mg PO DAILY Ibuprofen [Motrin] 800 mg PO Q6H PRN PRN Reason: Pain Enalapril Maleate [Vasotec] 20 mg PO BID Rosuvastatin Calcium [Crestor] 40 mg PO HS Fenofibrate 160 mg PO DAILY amLODIPine [Norvasc] 10 mg PO DAILY Omeprazole [PriLOSEC] 20 mg PO AC-BRKFST Fluticasone Nasal [place] [Flonase Nasal [place]] 2 spray EA NOSTRIL DAILY Aspirin 81 mg PO DAILY Sildenafil Citrate 100 mg PO DIRECTED PRN PRN Reason: ED Calcium Phos/D3/Magnesium/Zinc [Mqevwbv-Yzq-Dejm-Vitamin D3] 1 each PO DAILY Discharge Medication List Aspirin 81 mg PO DAILY 06/09/23 [History] Calcium Phos/D3/Magnesium/Zinc [Reksaso-Spc-Ckxt-Vitamin D3] 1 each PO DAILY 06/09/23 [History] Enalapril Maleate [Vasotec] 20 mg PO BID 06/09/23 [History] Fenofibrate 160 mg PO DAILY 06/09/23 [History] Fluticasone Nasal [place] [Flonase Nasal [place]] 2 spray EA NOSTRIL DAILY 06/09/23 [History] Ibuprofen [Motrin] 800 mg PO Q6H PRN 06/09/23 [History] Metoprolol Succinate (ER) [Toprol Xl] 100 mg PO DAILY 06/09/23 [History] Multivitamins, Thera [Multivitamin (formulary)] 1 tab PO DAILY 06/09/23 [History] Omeprazole [PriLOSEC] 20 mg PO AC-BRKFST 06/09/23 [History] Rosuvastatin Calcium [Crestor] 40 mg PO HS 06/09/23 [History] Sildenafil Citrate 100 mg PO DIRECTED PRN 06/09/23 [History] amLODIPine [Norvasc] 10 mg PO DAILY 06/09/23 [History] Cyclobenzaprine [Flexeril] 10 mg PO TID PRN #60 tab 06/17/23 [Rx] HYDROcodone/APAP 5-325MG [[place] 5] 1 each PO Q4HR PRN #42 tab 06/17/23 [Rx] Sennosides-Docusate Sodium [Senokot-S] 1 tab PO BID PRN #60 tablet 06/17/23 [Rx] Sennosides-Docusate Sodium [Senokot-S] 1 tab PO BID PRN #60 tablet 06/17/23 [Rx] Follow up Appointment(s)/Referral(s): Paola Melendez DO [Doctor of Osteopathic Medicine] - 2 Weeks (Patient may follow-up with Pedro Dia PA-C or Dr. Ben Melendez at [facility] in 2-3 weeks following discharge. ) Activity/Diet/Wound Care/Special Instructions: Keep site clean. May shower with waterproof Optifoam dressing intact. Do not soak in a tub. After 72 hours postoperatively, patient May remove dressing and then may shower with area uncovered. Leave glue intact and allow it to fray off on its own. May ambulate as tolerated. Avoid heavy or rigorous activity. No repetitive bending twisting or lifting. Patient is encouraged to use a walker to aid in ambulation as needed. No overhead work. Discharge Disposition: HOME SELF-CARE
[2023-06-24 08:29] VITALS: BP 157/81; TEMP 98.4
--- NOTE | 2023-06-24 12:00 | P.PN ---
Subjective Progress Note Date: 06/24/23 CHIEF COMPLAINT: Ileus HISTORY OF PRESENT ILLNESS: Patient sitting in chair. He had NG tube removed yesterday. He is on clear liquids. Patient denies any nausea or vomiting. Patient does admit to being a little bloated after eating today. He does have some tenderness across the lower abdomen. Rates pain 1 out of 10. He is having liquidy stools. Afebrile. PHYSICAL EXAM: VITAL SIGNS: Reviewed. GENERAL: Well-developed in no acute distress. ABDOMEN: soft. mildly distended. mild tenderness with palpation across the lower abdomen NEUROLOGIC: Alert and oriented. Cranial nerves II through XII grossly intact. ASSESSMENT: 1. Ileus likely secondary to recent spinal surgery PLAN: -Continue clear liquid diet -Further recommendations forthcoming per surgeon -Continue Reglan 10 mg IV every 6 -Continue Dulcolax suppository daily -Encourage patient to increase activity level Physician Art Glass Designer note has been reviewed by physician. Signing provider agrees with the documented findings, assessment, and plan of care. I have personally seen and examined the patient, reviewed the OFFSET SECOND PRESS OPERATOR /PAs history, exam and MDM and agree with the assessment and plan as written. Based on total visit time, I have performed more than 50% of the visit. As above: Patient says he feels well. He would like to go home. Nasogastric tube was removed. Says he is passing both air and liquid stools. Exam demonstr ates slight increased distention from yesterday. No significant tenderness currently. Options of observation for another day to monitor oral intake versus discharge reviewed in detail with patient. Again he is quite interested in discharge. Instructed patient to slowly advance diet at home. Avoid carbonation. Ambulate. Continue lactulose post discharge. Patient instructed to return to the hospital with any increased abdominal bloating, abdominal pain, nausea vomiting. He is agreeable. Objective - Vital Signs Vital signs: Vital Signs Temp 98.4 F 06/24/23 06:35 Pulse 74 06/24/23 06:35 Resp 18 06/24/23 06:35 BP 157/81 06/24/23 06:35 Pulse Ox 97 06/24/23 06:35 FiO2 Intake & Output 06/23/23 06/24/23 06/24/23 18:59 06:59 18:59 Weight 101.1 kg Other: Voiding Method Toilet Toilet Urinal Urinal # Voids 3 2 - Labs CBC & Chem 7: 06/22/23 06:17 06/22/23 06:17
--- NOTE | 2023-06-24 15:04 | P.PN ---
Progress Note - Text Progress Note Date: 06/24/23 - Chief Complaint Lumbar surgery - History of Present Illness This is a pleasant 62-year-old patient who follows with Dr. Tessa Lentz. Chronic stable medical conditions include GERD, hypertension, hyperlipidemia, obstructive sleep apnea pending CPAP, and a prior history of DVT with COVID. Patient had chronic low back pain with radiation down both legs. Symptoms had not been controlled conservatively. Patient has severe spinal stenosis with radiculopathy and disc herniation. Patient with surgical intervention yesterday by Dr. Melendez. Today sitting up in a chair. Did take a few steps in the room. Pain is present. No nausea vomiting. Some lightheaded. Ate some breakfast this morning. He did use a walker today. No bowel movement. Silva catheter June 17: Patient did walk with a walker today. Pain present. Silva catheter was removed. No bowel movement. Did tolerate diet. June 18: Patient is having some trouble with making urine. Had to be straight catheterized x 2. No prior problem. Given patient's age likely BPH. Flomax been added. No bowel movement. Pain is better. Did walk a bit in the hallway. present. June 19: Rather distended abdomen. Has had no bowel movement with lactulose/Dulcolax. Also did not respond to soapsuds enema. Nausea. Clinical suspicion for ileus is high.. I ordered abdominal x-ray. Small bowel ileus confirmed. NG tube to intermittent suction with medications. Otherwise n.p.o. consult general surgery. IV fluids June 20: NG tube. To suction. Had 1100 cc output from gastric drainage. Also has a Silva catheter. Trial DC Silva in the morning. Clinically ileus persist. Chewing gum ordered. No flatus. No abdominal pain June 21: NG tube. Will intermittent suction. Good output. Very slight decrease in abdominal distention. No flatus. Taking his medications. Abdominal x-ray today shows gaseous dilatation of multiple loops of bowel within the abdomen. No Tumma change from previous x-ray. June 22: NG tube to suction remains in place. Has passed some flatus. Some decrease in abdominal distention. Did walk a bit. Silva catheter discontinued this morning. Had not voided till my rounds. Discussed with patient at the bedside. No back pain. June 23: NG tube remains in place. Has had a small BM. Abdomen less distended. No nausea vomiting. Silva catheter was discontinued yesterday. Making good urine. Per surgery patient started on clear liquids this evening. X-ray showed gaseous distention of the bowels. June 24: NG tube was removed yesterday. Patient is advanced to full liquid diet. Has had a few bowel movements. No nausea vomiting. Feels much better. Making good urine. Surgery is planning to discharge the patient today. 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 Smokes marijuana rarely. Non-smoker. Alcohol occasionally. Physical examination: VITAL SIGNS: 98.4, 74, 18, 157 x 81, 97% room air GENERAL: Sitting up in the chair. Eating EYES: Pupils equal. Conjunctiva caroline l. HEENT: External appearance of nose and ears normal, oral cavity grossly normal. NG tube to suction NECK: JVD not raised; masses not palpable. HEART: First and second heart sounds are normal; no edema. LUNGS: Respiratory rate normal; clear to auscultation. ABDOMEN: Soft, decreased distention. nontender, liver spleen not palpable, no masses palpable. PSYCH: Alert and oriented x3; mood and affect a bit anxious. MUSCULOSKELETAL:No Clubbing/cyanosis;muscles-grossly intact. Dressing over the incision site INVESTIGATIONS, reviewed in the clinical context: June 22: White count 8.9 hemoglobin 11.5 potassium 3.8 creatinine 1.11 June 20: Sodium 134 potassium 3.7 creatinine 0.82 June 16, 2023: White count 14.2 hemoglobin 12.5 platelets 227 potassium 3.8 creatinine 0.9 Assessment plan: -Severe spinal stenosis L3-4 L4-5, degenerative disc disease L3-4 L4-5, disc herniation L3-4 L4-5, neurogenic claudication, lower extremity radiculopathy, lower extremity weakness, facet arthrosis, degenerative scoliosis: Pain controlled Laminectomy bilateral decompression discectomy etc. with Dr. Melendez on June 15 Activity as tolerated. -Acute small bowel ileus. Postop. Precipitated by decreased activity and pain medications: Clinically improved Continue NG tube to low intermittent suction. Continue. Oral medications. Some decrease in distention. Having bowel movements Advance to full liquid -Leukocytosis, reactive. Currently no obvious evidence of infection -Essential hypertension Amlodipine 10 mg a day. Toprol XL 100 mg a day. Vasotec 20 mg twice daily -Muscle spasms -Hyperlipidemia Crestor 40 mg nightly -Bladder outflow obstruction with intermittent decreased urine output. Patient had to have straight catheterization x 2. Likely BPH. Flomax 0.4 mg started-making good urine -GERD PPI -Obstructive sleep apnea Pending CPAP -Obesity BMI 33.9 Weight loss measures Tolerating current diet. Clinically much better. Thank you Dr. Melendez - Past Medical History Past Medical History: Deep Vein Thrombosis (DVT), GERD/Reflux, Hyperlipidemia, Hypertension, Sleep Apnea/CPAP/BIPAP Additional Past Medical History / Comment(s): DVT in lungs when he had COVID, "I've been told I snore a lot." "I'm going to have testing for it after my back surgery.", numbness to bi lat legs and feet. History of Any Multi-Drug Resistant Organisms: None Reported Past Surgical History: Hernia Repair, Orthopedic Surgery, Tonsillectomy Additional Past Surgical History / Comment(s): Umbilical hernia repair, Rt meniscus surgery, colonoscopy. Past Anesthesia/Blood Transfusion Reactions: Previous Problems w/ Anesthesia Additional Past Anesthesia/Blood Transfusion Reaction / Comm: "I was slow to wake up." Past Psychological History: No Psychological Hx Reported Smoking Status: Never smoker Past Alcohol Use History: Occasional Past Drug Use History: Marijuana Additional Drug Use History / Comment(s): "I smoke Marijuana 2-3 times a year." Pt instructed to not use Marijuana 24 hours prior to surgery.
--- NOTE | 2023-06-24 15:12 | CDI ---
Documentation Clarification Form Date: 06/21/2023 10:05:00 AM From: Carmencita Bryant RN, CCDS Phone: [phone] Admit Date: 06/16/2023 05:16:00 PM Patient Name: Tim Soto Visit Number: [id number] Discharge Date: 06/24/2023 01:38:00 PM ATTENTION: The Clinical Documentation Specialists (CDI) and [facility] Coding Staff appreciate your assistance in clarifying documentation. Please respond to the clarification below the line at the bottom and electronically sign. The CDI & [facility] Coding staff will review the response and follow-up if needed. Please note: Queries are made part of the Legal Health Record. If you have any questions, please contact the author of this message via ITS. Dr. Paola Melendez Acute small bowel ileus, Postop is documented in the Internal Medicine progress note on 06/20/23. Additional clarification is requested regarding the relationship, if any, that exists between the diagnosis and the procedure. Patients Admitting Diagnosis: Severe spinal stenosis L3-4 L4-5, degenerative disc disease L3-4 L4-5, disc herniation L3-4 L4-5, neurogenic claudication, lower extremity radiculopathy, lower extremity weakness, facet arthrosis, degenerative scoliosis Post-Operative Diagnosis: Same Procedure performed: L3-4 and L4-5 minimally invasive posterior lateral decompression and fusion with transforaminal lumbar interbody fusion. History/Risk Factors: L3-4 and L4-5 severe spinal stenosis, L3-4 and L4-5 degenerative disc disease, Neurogenic claudication, Hyperlipidemia, Essential hypertension Clinical Indicators: 62-year-old male present for elective L3-4 and L4-5 minimally invasive posterior lateral decompression and fusion with transforaminal lumbar interbody fusion on 06/16/23. 06/19/23 No bowel movement. Rather distended abdomen. Has had no bowel movement with lactulose/Dulcolax. Also did not respond to soapsuds enema. Nausea Clinical suspicion for ileus is high. I ordered abdominal x-ray. Small bowel ileus confirmed. NG tube to intermittent suction with medications. 06/20 IM progress note: Acute small bowel ileus. Postop. Precipitated by decreased activity and pain medications: Not improving Treatment NG tube to intermittent suction with medications. N.P.O. Lactated Ringers IV @125 HR 06/19-2 Reglan 10 MG IV Q6 HRS Encourage increase activity level. What relationship, if any, exists between the diagnosis of Acute small bowel ileus, Postop and the procedure: [ X ] Acute small bowel ileus is a complication of surgical procedure [ ] Acute small bowel ileus is an expected outcome of the surgical procedure [ ] Acute small bowel ileus is related to patients co-morbid condition(s) of [insert co-morbid dxs] & not a complication of the procedure [ ] Other please specify ____ [ ] Unable to determine (Template Last Revised: July 2020) The patient developed a small bowel ileus postoperatively. He had undergone a significant surgical procedure and with his decreased activity postoperatively and pain medication has bowel may have slowed to develop the ileus. He does have a number of comorbid conditions and has some history of bloating over the past several weeks and the ileus may be related to his comorbid conditions not specifically a complication of his procedure. This is unable to determine. CÉSAR
== END 2023-06-24 13:38 | disposition home or self-care (01) | DRG 454 ==
LOC: OR 10:23 → 4SSUR 16:44 → OR 16:44 → 4SSUR 17:16 → UNDOADMOB 06-16 17:16 → 4SSUR 06-16 17:16 → OR 06-16 17:16 → 4SSUR 06-16 17:16 → INTOOBSV 06-16 17:16 → OBSVTOIN 06-16 17:16 → UNDODISIN 06-24 13:38
PROVIDERS: ADMIT Orthopaedic Surgery Orthopaedic Surgery of the Spine; ATTEND Orthopaedic Surgery Orthopaedic Surgery of the Spine
PROC: 0SG1071 Fusion of 2 or more Lumbar Vertebral Joints with Autologous Tissue Substitute, Posterior Approach, Posterior Column, Open Approach (ICD-10-PCS; 2023-06-15)
PROC: 01NB0ZZ Release Lumbar Nerve, Open Approach (ICD-10-PCS; 2023-06-15)
PROC: 0SB20ZZ Excision of Lumbar Vertebral Disc, Open Approach (ICD-10-PCS; 2023-06-15)
PROC: 0SU Lower Joints, Supplement (ICD-10-PCS; 2023-06-15)
PROC: 07DS3ZZ Extraction of Vertebral Bone Marrow, Percutaneous Approach (ICD-10-PCS; 2023-06-15)
PROC: 8E0WXBG Computer Assisted Procedure of Trunk Region, With Computerized Tomography (ICD-10-PCS; 2023-06-15)
PROC: 0SG10AJ Fusion of 2 or more Lumbar Vertebral Joints with Interbody Fusion Device, Posterior Approach, Anterior Column, Open Approach (ICD-10-PCS; principal; 2023-06-15 12:10)
PROC: 0D9670Z Drainage of Stomach with Drainage Device, Via Natural or Artificial Opening (ICD-10-PCS; 2023-06-19)
DX: M51.16 Intervertebral disc disorders with radiculopathy, lumbar region (principal); K56.0 Paralytic ileus; K91.89 Other postprocedural complications and disorders of digestive system; N13.8 Other obstructive and reflux uropathy; M41.56 Other secondary scoliosis, lumbar region; I10 Essential (primary) hypertension; E66.9 Obesity, unspecified; M48.062 Spinal stenosis, lumbar region with neurogenic claudication; M47.26 Other spondylosis with radiculopathy, lumbar region; N40.1 Benign prostatic hyperplasia with lower urinary tract symptoms; E78.5 Hyperlipidemia, unspecified; K21.9 Gastro-esophageal reflux disease without esophagitis; G47.33 Obstructive sleep apnea (adult) (pediatric); M62.830 Muscle spasm of back; G89.29 Other chronic pain; D72.828 Other elevated white blood cell count; Y83.8 Other surgical procedures as the cause of abnormal reaction of the patient, or of later complication, without mention of misadventure at the time of the procedure; Z68.33 Body mass index [BMI] 33.0-33.9, adult; Z86.16 Personal history of COVID-19; Z86.711 Personal history of pulmonary embolism; Z79.82 Long term (current) use of aspirin; Z79.899 Other long term (current) drug therapy; Z88.6 Allergy status to analgesic agent
CPT/HCPCS: 71045; 72100; 74019; 80048; 85025; 86891; 94760

== ENCOUNTER 2023-07-01 20:31 | Emergency (ER) | payer BC ==
[2023-07-01 20:43] VITALS: TEMP 98.2
--- NOTE | 2023-07-01 22:13 | ED ---
General Adult HPI - General Chief complaint: Urogenital Stated complaint: unable to urinate Time Seen by Provider: 07/01/23 21:17 Source: patient, RN notes reviewed, old records reviewed Mode of arrival: ambulatory Limitations: no limitations - History of Present Illness Initial comments: Patient is a 62-year-old male who presents emergency department for urinary retention. Had back surgery on June 15, 2023. Had difficulty with urination following the surgery and had a prolonged Silva in place until last Tuesday. Was urinating okay on his own however over the last week has noticed less and less urination and increased discomfort in his suprapubic region. Denies any fevers or chills. Is concerned that he still may be retaining urine at this time. Presents for further evaluation at this time. Denies any saddle anesthesias. Denies any issues with bowel movements. Denies any lower extremity paralysis. Presents for evaluation of urinary retention postsurgery. - Related Data Home Medications Medication Instructions Recorded Confirmed Aspirin 81 mg PO DAILY 06/09/23 06/15/23 Calcium Phos/D3/Magnesium/Zinc 1 each PO DAILY 06/09/23 06/15/23 [[id number]-Vitamin D3] Enalapril Maleate [Vasotec] 20 mg PO BID 06/09/23 06/15/23 Fenofibrate 160 mg PO DAILY 06/09/23 06/15/23 Fluticasone Nasal [place] [Flonase 2 spray EA NOSTRIL DAILY 06/09/23 06/15/23 Nasal [place]] Metoprolol Succinate (ER) [Toprol 100 mg PO DAILY 06/09/23 06/15/23 XL] Multivitamins, Thera [Multivitamin 1 tab PO DAILY 06/09/23 06/15/23 (formulary)] Omeprazole [PriLOSEC] 20 mg PO AC-BRKFST 06/09/23 06/15/23 Rosuvastatin Calcium [Crestor] 40 mg PO HS 06/09/23 06/15/23 Sildenafil Citrate 100 mg PO DIRECTED PRN 06/09/23 06/15/23 amLODIPine [Norvasc] 10 mg PO DAILY 06/09/23 06/15/23 Previous Rx's Medication Instructions Recorded Cyclobenzaprine [Flexeril] 10 mg PO TID PRN #60 tab 06/17/23 HYDROcodone/APAP 5-325MG [[place] 5] 1 each PO Q4HR PRN #42 tab 06/17/23 Sennosides-Docusate Sodium 1 tab PO BID PRN #60 tablet 06/17/23 [Senokot-S] Sennosides-Docusate Sodium 1 tab PO BID PRN #60 tablet 06/17/23 [Senokot-S] Lactulose 10 gm PO DAILY #15 ml 06/24/23 Tamsulosin [Flomax] 0.4 mg PO PC-BRKFST #30 cap 06/24/23 Allergies Allergy/AdvReac Type Severity Reaction Status Date / Time propoxyphene Allergy Nausea Verified 06/15/23 11:11 [From [facility]] Review of Systems ROS Statement: Those systems with pertinent positive or pertinent negative responses have been documented in the HPI. Review of Systems: CONST: Denies fever EYES: Denies blurry vision ENT: Denies nasal congestion C/V: Denies Chest pain RESP: Denies shortness of breath GI: Denies abdominal pain : Denies dysuria SKIN: Denies rash. MSK: Denies joint pain. NEURO: Denies headache ROS Other: All systems not noted in ROS Statement are negative. Past Medical History Past Medical History: Deep Vein Thrombosis (DVT), GERD/Reflux, Hyperlipidemia, Hypertension, Sleep Apnea/CPAP/BIPAP Additional Past Medical History / Comment(s): DVT in lungs when he had COVID, "I've been told I snore a lot." "I'm going to have testing for it after my back surgery.", numbness to bi lat legs and feet. History of Any Multi-Drug Resistant Organisms: None Reported Past Surgical History: Hernia Repair, Orthopedic Surgery, Tonsillectomy Additional Past Surgical History / Comment(s): Umbilical hernia repair, Rt meniscus surgery, colonoscopy. Past Anesthesia/Blood Transfusion Reactions: Previous Problems w/ Anesthesia Additional Past Anesthesia/Blood Transfusion Reaction / Comment(s): "I was slow to wake up." Past Psychological History: No Psychological Hx Reported Smoking Status: Never smoker Past Alcohol Use History: Occasional Past Drug Use History: Marijuana - Past Family History Father Family Medical History: Cancer Additional Family Medical History / Comment(s): Esophageal and pancreas General Exam - General Exam Comments Initial Comments: General: Appears in no acute distress. HEAD: Normal with no signs of head trauma. EYES: EOMI. ENT: Hearing grossly intact. RESPIRATORY: No respiratory distress. C/V: Regular rate and rhythm. ABD: Suprapubic distention on palpation. Suspect urinary retention. No tenderness to palpation. No guarding, peritoneal signs, rebound tenderness. EXT: No obvious deformity. SKIN: No rashes or lesions observed on exposed skin. NEURO: Alert and oriented. Limitations: no limitations Course Vital Signs 07/01/23 07/01/23 20:36 23:27 Temperature 98.2 F Pulse Rate 106 H 112 H Respiratory 18 16 Rate Blood Pressure 175/92 146/75 O2 Sat by Pulse 97 96 Oximetry Medical Decision Making - Medical Decision Making Was pt. sent in by a medical professional or institution ([facility], [employer], urgent care, hospital, or group home...) When possible be specific @ -No Did you speak to anyone other than the patient for history (EMS, parent, family, police, friend...)? What history was obtained from this source @ -No Did you review nursing and triage notes (agree or disagree)? Why? @ -I reviewed and agree with nursing and triage notes Were old charts reviewed (outside hosp., previous admission, EMS record, old EKG, old radiological studies, urgent care reports/EKG's, group home records)? Report findings @ -Old charts reviewed Differential Diagnosis (chest pain, altered mental status, abdominal pain women, abdominal pain men, vaginal bleeding, weakness, fever, dyspnea, syncope, headache, dizziness, GI bleed, back pain, seizure, CVA, palpatations, mental health, musculoskeletal)? @ -Urinary retention, UTI, this list is not all inclusive. EKG interpreted by me (3pts min.). @ -None done X-rays interpreted by me (1pt min.). @ -None done CT interpreted by me (1pt min.). @ -None done U/S interpreted by me (1pt. min.). @ -None done What testing was considered but not performed or refused? (CT, X-rays, U/S, labs)? Why? @ -None What meds were considered but not given or refused? Why? @ -None Did you discuss the management of the patient with other professionals (professionals i.e. Dr., PA, [employer] TE[employer]ION ANNOUNCER, lab, RT, psych nurse, long term care social worker, program advisor, teacher, personal banking officer, rn case management)? Give summary @ -No Was smoking cessation discussed for >3mins.? @ -No Was critical care preformed (if so, how long)? @ -No Were there social determinants of health that impacted care today? How? (Homelessness, low income, unemployed, alcoholism, drug addiction, transportation, low edu. Level, literacy, decrease access to med. care, fpc, rehab)? @ -No Was there de-escalation of care discussed even if they declined (Discuss DNR or withdrawal of care, Hospice)? DNR status @ -No What co-morbidities impacted this encounter? (DM, HTN, Smoking, COPD, CAD, Cancer, CVA, ARF, Chemo, Hep., AIDS, mental health diagnosis, sleep apnea, morbid obesity)? @ -None Was patient admitted / discharged? Hospital course, mention meds given and route, prescriptions, significant lab abnormalities, going to OR and other pertinent info. @ -Based on patient's presentation and physical exam, presents with urinary retention. Vital signs are within acceptable limits. Postvoid residual for the patient was approximately 300 cc of urine in his bladder. I did discuss with the patient and due to this elevated postvoid residual I did recommend Silva catheter placement. He was in agreement this plan. We will send a urine sample as well. Will monitor for approximately 30 minutes after Silva catheter placement while we await for the urine results. He was in agreement this plan. He will follow-up with urology. He saw Dr. Cool here in the hospital when he had the initial issues and would like to follow-up with him again. Urinalysis unremarkable. Silva catheter placement successful. He was discharged home at this time. He was in agreement this plan. I instructed the patient to follow up with their PCP in the next 1-3 days. I provided contact information for follow up with Silvina explained that the patient should return to the emergency department if they experience any worsening symptoms. Strict return precautions were discussed with the patient. The patient expressed understanding of these instructions. I answered all questions that the patient had. The patient was discharged home in good condition with their prescriptions and follow up information. Undiagnosed new problem with uncertain prognosis? @ -No Drug Therapy requiring intensive monitoring for toxicity (Heparin, Nitro, Insulin, Cardizem)? @ -No Were any procedures done? @ -No Diagnosis/symptom? @ -Urinary retention status post surgery, Silva catheter placement Acute, or Chronic, or Acute on Chronic? @ -Acute Uncomplicated (without systemic symptoms) or Complicated (systemic symptoms)? @ -Complicated Side effects of treatment? @ -No Exacerbation, Progression, or Severe Exacerbation? @ -No Poses a threat to life or bodily function? How? (Chest pain, [place], [place], pneumonia, PE, COPD, DKA, ARF, appy, cholecystitis, CVA, Diverticulitis, Homicidal, Suicidal, threat to staff... and all critical care pts) @ -Unlikely - Lab Data Lab Results 07/01/23 Range/Units 21:00 Urine Color Colorless Urine Appearance Clear (Clear) Urine pH 6.5 (5.0-8.0) Ur Specific [place] 1.004 (1.001-1.035) Urine Protein Negative (Negative) Urine Glucose (UA) Negative (Negative) Urine Ketones Negative (Negative) Urine Blood Negative (Negative) Urine Nitrite Negative (Negative) Urine Bilirubin Negative (Negative) Urine Urobilinogen <2.0 (<2.0) mg/dL Ur Leukocyte Esterase Negative (Negative) Disposition Clinical Impression: Urinary retention, Silva catheter in place Disposition: HOME SELF-CARE Condition: Good Instructions (If sedation given, give patient instructions): Urinary Retention in Men (ED), Silva Catheter Placement and Care (ED) Is patient prescribed a controlled substance at d/c from ED?: No Referrals: Nelli Lentz MD [Primary Care Provider] - 1-2 days Alexis Cool MD [STAFF PHYSICIAN] - 1-2 days Time of Disposition: 22:20
[2023-07-01 22:16] LABS: Appearance,Urine Clear (Clear); Bilirubin,Urine Negative (Negative); Blood,Urine Negative (Negative); Color,Urine Colorless; Glucose,Urine (UA) Negative (Negative); Ketones,Urine Negative (Negative); Leukocyte Esterase,Urine Negative (Negative); Nitrite,Urine Negative (Negative); PH, Urine 6.5 (5.0-8.0); Protein,Urine Negative (Negative); Specific Gravity,Urine 1.004 (1.001-1.035); Urobilinogen,Urine <2.0 mg/dL (<2.0)
[2023-07-01] MEDS: MORPHINE SULFATE 4 MG/ML SYRINGE IM STA (23:23)
[2023-07-01 23:40] VITALS: BP 146/75; PULSE 112; RESP 16
== END 2023-07-01 23:31 | disposition home or self-care (01) ==
LOC: EC 20:31
DX: R33.8 Other retention of urine (principal); Z96.0 Presence of urogenital implants; I10 Essential (primary) hypertension; E78.5 Hyperlipidemia, unspecified; G47.30 Sleep apnea, unspecified; K21.9 Gastro-esophageal reflux disease without esophagitis; F12.90 Cannabis use, unspecified, uncomplicated; Z79.82 Long term (current) use of aspirin; Z79.899 Other long term (current) drug therapy; Z86.16 Personal history of COVID-19; Z88.8 Allergy status to other drugs, medicaments and biological substances
CPT/HCPCS: 51798; 81003; 99283; 96372; 51702; J2270